=== PATIENT | female | born 1980 | race Caucasian/White ===

== ENCOUNTER 2021-11-30 11:27 | Outpatient (CLI) | payer BC, MEDICARE, SELFPAY ==
[2021-11-30 12:27] LABS: Anion Gap 10 mmol/L (8-16); Blood Urea Nitrogen 13 mg/dL (7-17); Carbon Dioxide 21 mmol/L (22-30); Chloride 104 mmol/L (98-107); Estimated Glomerular Filt Rate > 60; Glucose 91 mg/dL (65-110); Sodium 135 mmol/L (137-145)
== END 2021-11-30 11:28 | disposition home or self-care (01) ==
PROVIDERS: Anesthesiology; PCP Family Medicine; Visit Provider Urology
DX: Z01.818 Encounter for other preprocedural examination (principal); Z79.899 Other long term (current) drug therapy; N31.9 Neuromuscular dysfunction of bladder, unspecified
CPT/HCPCS: 36415; 80048; 87086

== ENCOUNTER 2021-12-04 00:15 | Day surgery (SDC) | payer BC, MEDICARE, SELFPAY ==
[2021-11-28 09:28] VITALS: BMI 29.4
--- NOTE | 2021-11-28 09:48 | PC.NURSE ---
Report to the Outpatient Waiting Room, entrance under the green pavilion located off [facility], at time 11:30 on date 12/04/21. OR Time: 1:30. - You and your visitor will be asked to self-screen and do not enter if you have any COVID symptoms. - Only one visitor and NO children visitors are allowed at this time. - The patient visitor is requested to leave or wait in car when not with patient due to restrictions. - A mask is required within the hospital. Patients may have clear liquids (water, carbonated beverages, clear teas, apple juice) until 3 hours prior to surgery with a maximum of 20 ounces. - No food from midnight until time of surgery Take the following medications with a SIP of water the morning of surgery: BUSPIRONE, DIAZEPAM, DULOXETINE, LYRICA Medications to discontinue per physician: VITAMINS/SUPPLEMENTS Date to take last dose: 11/30/[address] POTTS'S INSTRUCTIONS Please no make-up, nail wolof, hairspray, perfume, deodorant, or body powder the day of surgery. No jewelry (including any body piercings) or valuables the day of surgery, leave them at home. Please take a shower or bath the night before, or the morning of, surgery with an antibacterial soap. Wear comfortable, loose fitting clothing. - Jewelry must be removed prior to entering the operating room. Rings and piercings that are not removed may be cut off. - The hospital will not accept responsibility for valuables. - Please leave all valuables, including medications, at home the day of surgery. If you are going home after surgery, a licensed fire truck driver must drive you home. - NO public transportation without another adult. - We recommend that an adult stay with you for 24 hours following discharge. - We also recommend that you do not drive, make important decision, drink alcoholic beverages, or take any drugs that were not prescribed by your health care provider for at least 24 hours after your discharge time. Follow any additional instructions given to you from your surgeon. If you or anyone in your household have experienced Covid symptoms in the past week, please notify your surgeon or the nurse liaison at the phone number below for possible testing. Telephone instructions given to PT - ALICIA JASON and asked if any additional questions and then verbalized understanding. Patient advised to call surgeon office or pre surgery nurse liaison [phone] if any additional questions.
--- NOTE | 2021-12-01 08:59 | PM.IMHP ---
H&P: HPI History of Present Illness Date/Time: 12/01/21 08:59 Chief Complaint: Neurogenic bladder Narrative: 41-year-old with neurogenic bladder. She is catheterized by caregiver. She has history of autonomic dysreflexia. She has leakage between catheterizations. She presents for Botox 200 units Review of Systems Review of Systems: All systems reviewed & are unremarkable except as noted in HPI and below PMFSH Social History Social History Smoking status: Never smoker Alcohol intake: never Substance use: current Other substance usage details: CBD OIL DROPS Spiritual care concerns: No Meds Home Medications and Allergies Home Medications Medication Instructions Recorded Confirmed Type Lactobacillus acidophilus and 1 cap PO DAILY 11/28/21 11/28/21 History rhamnosus 15 billion cell capsule (Probiotic) apixaban 2.5 mg tablet (Eliquis) 2.5 mg PO BID 11/28/21 11/28/21 History apple cider vinegar 300 mg tablet 300 mg PO DAILY 11/28/21 11/28/21 History baclofen 10 mg tablet See Rx Instructions .Route .COMPLEX 11/28/21 11/28/21 History bisacodyl 5 mg tablet,delayed 5 mg PO HS 11/28/21 11/28/21 History release (Dulcolax (bisacodyl)) buspirone 7.5 mg tablet 7.5 mg PO BID 11/28/21 11/28/21 History calcium carbonate 500 mg-vitamin 1 tablet PO BID 11/28/21 11/28/21 History D3 5 mcg (200 unit) tablet cetirizine 10 mg tablet (Zyrtec) 10 mg PO DAILY 11/28/21 11/28/21 History diazepam 2 mg tablet 2 mg PO BID 11/28/21 11/28/21 History diphenhydramine HCl 25 mg capsule 25 mg PO HS 11/28/21 11/28/21 History (Benadryl) duloxetine 60 mg capsule,delayed 60 mg PO BID 11/28/21 11/28/21 History release furosemide 20 mg tablet 20 mg PO DAILY 11/28/21 11/28/21 History lorazepam 0.5 mg tablet 0.5 mg PO HS 11/28/21 11/28/21 History magnesium citrate 100 mg capsule 100 mg PO DAILY PRN Constipation 11/28/21 11/28/21 History melatonin 10 mg tablet 10 mg PO HS 11/28/21 11/28/21 History mirabegron 50 mg tablet,extended 50 mg PO HS 11/28/21 11/28/21 History release 24 hr (Myrbetriq) naproxen 500 mg tablet 500 mg PO BID PRN Pain 11/28/21 11/28/21 History norethindrone (contraceptive) 0.35 0.35 mg PO DAILY 11/28/21 11/28/21 History mg tablet nortriptyline 50 mg capsule 50 mg PO HS 11/28/21 11/28/21 History ondansetron 4 mg disintegrating 4 mg PO Q8H PRN Nausea 11/28/21 11/28/21 History tablet pregabalin 100 mg capsule (Lyrica) 100 mg PO TID 11/28/21 11/28/21 History spironolactone 50 mg tablet 50 mg PO TID 11/28/21 11/28/21 History Allergies Allergy/AdvReac Type Severity Reaction Status Date / Time No Known Allergies Allergy Verified 11/28/21 09:18 Exam Narrative: No acute distress Wheelchair-bound Assessment and Plan Assessment and plan (1) Uninhibited neurogenic bladder: Code(s): N31.9 - Neuromuscular dysfunction of bladder, unspecified Status: Acute Assessment and Plan: Cystoscopy with Botox 200 units. She artery does self catheterization
--- NOTE | 2021-12-04 07:15 | WPDHPUPDATE1 ---
History and Physical Update Update Date/Time: 12/04/21 07:15 History and Physical has been reviewed, including an updated exam of the patient. There are NO changes in the patient's condition. Risks, benefits, and alternatives have been discussed and questions answered. Patient agrees to proceed with procedure.
[2021-12-04] MEDS: LACTATED RINGERS 1,000 ML 30 ML IV CONT (12:07)
[2021-12-04 12:24] VITALS: BP 109/74; PULSE 71; RESP 18; TEMP 36.6; O2SAT 97
[2021-12-04 12:47] LABS: Beta HCG Quantitative < 2.39 mIU/ML
--- NOTE | 2021-12-04 12:58 | WPDANESEPPF ---
Anes - Initial Pre Proc Eval Procedure: Operation Date: 12/04/21 13:30 Proposed Procedures p Cystoscopy, Botox Injection 200 Units - Junito Montes MD Date/Time: 12/04/21 12:58 Surgeon: Junito Montes MD Pre Op Diagnosis: reflex neuropathic bladder Patient Data Age: 41 Gender: F Height: 1.65 m Weight: 85.5 kg Last Vital Signs Temp 36.6 C 12/04/21 12:24 Pulse 71 12/04/21 12:24 Resp 18 12/04/21 12:24 BP 109/74 12/04/21 12:24 Pulse Ox 97 12/04/21 12:24 O2 Del Method Room Air 12/04/21 12:24 Allergies Allergy/AdvReac Type Severity Reaction Status Date / Time No Known Allergies Allergy Verified 12/04/21 12:43 Home Medications Medication Instructions Recorded Confirmed Type Lactobacillus acidophilus and 1 cap PO DAILY 11/28/21 12/04/21 History rhamnosus 15 billion cell capsule (Probiotic) apixaban 2.5 mg tablet (Eliquis) 2.5 mg PO BID 11/28/21 12/04/21 History apple cider vinegar 300 mg tablet 300 mg PO DAILY 11/28/21 12/04/21 History baclofen 10 mg tablet See Rx Instructions .Route .COMPLEX 11/28/21 12/04/21 History bisacodyl 5 mg tablet,delayed 5 mg PO HS 11/28/21 12/04/21 History release (Dulcolax (bisacodyl)) buspirone 7.5 mg tablet 7.5 mg PO BID 11/28/21 12/04/21 History calcium carbonate 500 mg-vitamin 1 tablet PO BID 11/28/21 12/04/21 History D3 5 mcg (200 unit) tablet cetirizine 10 mg tablet (Zyrtec) 10 mg PO DAILY 11/28/21 12/04/21 History diazepam 2 mg tablet 2 mg PO BID 11/28/21 12/04/21 History diphenhydramine HCl 25 mg capsule 25 mg PO HS 11/28/21 12/04/21 History (Benadryl) duloxetine 60 mg capsule,delayed 60 mg PO BID 11/28/21 12/04/21 History release furosemide 20 mg tablet 20 mg PO DAILY 11/28/21 12/04/21 History lorazepam 0.5 mg tablet 0.5 mg PO HS 11/28/21 12/04/21 History magnesium citrate 100 mg capsule 100 mg PO DAILY PRN Constipation 11/28/21 12/04/21 History melatonin 10 mg tablet 10 mg PO HS 11/28/21 12/04/21 History mirabegron 50 mg tablet,extended 50 mg PO HS 11/28/21 12/04/21 History release 24 hr (Myrbetriq) naproxen 500 mg tablet 500 mg PO BID PRN Pain 11/28/21 12/04/21 History norethindrone (contraceptive) 0.35 0.35 mg PO DAILY 11/28/21 12/04/21 History mg tablet nortriptyline 50 mg capsule 50 mg PO HS 11/28/21 12/04/21 History ondansetron 4 mg disintegrating 4 mg PO Q8H PRN Nausea 11/28/21 12/04/21 History tablet pregabalin 100 mg capsule (Lyrica) 100 mg PO TID 11/28/21 12/04/21 History spironolactone 50 mg tablet 50 mg PO TID 11/28/21 12/04/21 History Laboratory Tests 12/04/21 12:00 Beta HCG, Quant < 2.39 mIU/ML mIU/ML Patient hx anesthesia problems: none Family hx anesthesia problems: none Results Review: All pre-operative results and documents have been reviewed as part of the pre-operative evaluation. [facility] Past Medical History Medical History Anxiety Quadriplegia Social History Social History Smoking status: Never smoker Alcohol intake: never Substance use: current Other substance usage details: CBD OIL DROPS Living arrangements: with family Spiritual care concerns: No Anes - Eval Final PreProcedure Day of Procedure 12/04/21 12:58 Patient weight: obese Heart: regular rate and rhythm Lungs: decreased breath sounds Airway: Mallampati scale class II Neurological: alert and oriented and other (quad) Last oral intake: >/= 8 hours ASA classification: III Emergent: no Anesthetic plan: proceed Anesthesia type and monitoring: general GIVS and standard monitoring Results Review: All pre-operative results and documents have been reviewed as part of the pre-operative evaluation. Informed Consent: The patient's anesthetic plan and its attendant risks and benefits were discussed with the patient/family/POA. Questions were solicited and answers provided to
[2021-12-04] MEDS: ceFAZolin 2 GM/D5W 50 ML 2 GM/50 ML BAG IVPB (13:04)
[2021-12-04] MEDS: BOTULINUM TOXIN TYPE A (*SPLP) 100 UNITS VIAL 200 UNITS XX (13:18)
[2021-12-04 13:30] VITALS: BP 95/61; PULSE 83; RESP 16; O2SAT 96
--- NOTE | 2021-12-04 13:32 | P.OP_ITS ---
Procedure Note - Detailed Date of Procedure 12/04/21 Pre-op Diagnosis reflex neuropathic bladder Post-op Diagnosis Same Procedure Performed Cystoscopy the injection of Botox 200 units Surgeon Junito Montes MD [employer] None Anesthesia MAC Indications This is a young woman neurogenic bladder. She does intermittent catheterization. She has leakage doing catheterizations. She is here for cystoscopy with injection of Botox 200 units. She understands risks of bleeding, infection, lack of efficacy, need for repeat procedures. She agrees to proceed Findings Trabeculated bladder Description of Procedure She has correctly identified. Informed consent obtained. She from the operating room. She was given MAC anesthesia. She was monitored for autonomic dysreflexia. She was given appropriate perioperative antibiotics. A time-out performed. Cystoscopy revealed moderate trabeculations. Bladder otherwise normal without tumors or abnormalities. Ureteral orifices normal. I mixed 200 units of Botox in 20 cc preservative-free saline. I injected throughout the bladder in the sub urothelial and muscular layer. Additional cc was used to clear the needle. There is no significant bleeding from the injection sites. Her bladder was drained. She was awakened transferred to PACU in stable condition. Estimated Blood Loss 1 Drains No Packing No Pathology None sent Complications No immediate complications Condition Stable Disposition PACU
[2021-12-04 14:00] VITALS: BP 102/66; PULSE 67; RESP 16; O2SAT 98
[2021-12-04 14:27] VITALS: BP 86/47; PULSE 70; RESP 16; O2SAT 98
== END 2021-12-04 14:50 | disposition home or self-care (01) ==
PROVIDERS: PCP Family Medicine; Visit Provider Urology
PROC: 3E0K8GC Introduction of Other Therapeutic Substance into Genitourinary Tract, Via Natural or Artificial Opening Endoscopic (ICD-10-PCS; CPT 52287; principal; 2021-12-04 13:30)
DX: N31.9 Neuromuscular dysfunction of bladder, unspecified (principal); Z79.01 Long term (current) use of anticoagulants; F41.9 Anxiety disorder, unspecified; G82.50 Quadriplegia, unspecified; E66.9 Obesity, unspecified; Z68.31 Body mass index [BMI] 31.0-31.9, adult
CPT/HCPCS: 52287; 36415; 84702; A9270; J0585; J0690; J2250; J2704; J3010; J7120

== ENCOUNTER 2022-06-11 12:59 | Outpatient (CLI) | payer MEDICARE, SELFPAY ==
[2022-06-11 14:57] LABS: Anion Gap 9 mmol/L (8-16); Blood Urea Nitrogen 11 mg/dL (7-17); Calcium 8.5 mg/dL (8.4-10.2); Carbon Dioxide 22 mmol/L (22-30); Chloride 106 mmol/L (98-107); Estimated Glomerular Filt Rate > 60; Glucose 99 mg/dL (65-110); Sodium 137 mmol/L (137-145)
== END 2022-06-11 13:00 | disposition home or self-care (01) ==
LOC: ANHSURGERY 13:04
PROVIDERS: Anesthesiology; PCP Family Medicine; Visit Provider Urology
DX: N31.9 Neuromuscular dysfunction of bladder, unspecified (principal); Z79.899 Other long term (current) drug therapy
CPT/HCPCS: 36415; 80048; 87077; 87086; 87186

== ENCOUNTER 2022-06-15 00:29 | Day surgery (SDC) | payer MEDICARE, SELFPAY ==
[2022-06-05 11:46] VITALS: BMI 25.4
--- NOTE | 2022-06-05 11:51 | PC.NURSE ---
Report to the Outpatient Waiting Room, entrance under the green pavilion located off [facility], at time 7:00 on date 06/15/22. Planned Procedure Time: 9:00. Time changes happen often and if your time is changed the preop area will call you the afternoon before. - You and your visitor will be asked to self-screen and do not enter if you have any COVID symptoms. - Only one visitor is requested with a max of two and NO children visitors are allowed at this time. - The patient visitor may be requested to leave or wait in car when not with patient due to distancing restrictions. - A mask is optional within the hospital at this time. Patients may have clear liquids (water, carbonated beverages, clear teas, apple juice) until 3 hours prior to surgery with a maximum of 20 ounces. - No food from midnight until time of surgery Take the following medications with a SIP of water the morning of surgery: BACLOFEN, BUSPIRONE, DIAZEPAM, DULOXETINE, LYRICA DO NOT STOP ANY OF YOUR OTHER PRESCRIPTION MEDICATIONS PRIOR TO SURGERY?EXCEPT THE FOLLOWING Medications to discontinue per physician: VITAMINS/SUPPLEMENTS Date to take last dose: 05/14/[address] POTTS'S INSTRUCTIONS Please no make-up, nail spanish, hairspray, perfume, deodorant, or body powder the day of surgery. No jewelry (including any body piercings) or valuables the day of surgery, leave them at home. Please take a shower or bath the night before, or the morning of, surgery with an antibacterial soap. Wear comfortable, loose fitting clothing. - Jewelry must be removed prior to entering the operating room. Rings and piercings that are not removed may be cut off. - The hospital will not accept responsibility for valuables. - Please leave all valuables, including medications, at home the day of surgery. If you are going home after surgery, a licensed solo truck driver must drive you home. - NO public transportation without another adult if you receive anesthesia. - We recommend that an adult stay with you for 24 hours following discharge. - We also recommend that you do not drive, make important decision, drink alcoholic beverages, or take any drugs that were not prescribed by your health care provider for at least 24 hours after your discharge time. Follow any additional instructions given to you from your surgeon. If you or anyone in your household have experienced Covid symptoms in the past week, please notify your surgeon or the nurse liaison at the phone number below for possible testing. Telephone instructions given to JYOTI JASON and asked if any additional questions and then verbalized understanding. Patient advised to call surgeon office or pre surgery nurse liaison [phone] if any additional questions.
--- NOTE | 2022-06-11 12:41 | PM.IMHP ---
H&P: HPI History of Present Illness Date/Time: 06/11/22 12:41 Chief Complaint: Neurogenic bladder Narrative: Botox injection. Done in the operating room due to mobility issues and autonomic dysreflexia Review of Systems Review of Systems: All systems reviewed & are unremarkable except as noted in HPI and below PMFSH Past Medical History Medical History Anxiety Quadriplegia Social History Social History Smoking status: Never smoker Alcohol intake: former Substance use: current Substance use type: marijuana Other substance usage details: CBD OIL DROPS Living arrangements: with friend(s) Additional living arrangements comments: BOYFRIEND Spiritual care concerns: No Meds Home Medications and Allergies Home Medications Medication Instructions Recorded Confirmed Type Lactobacillus acidophilus and 1 cap PO DAILY 11/28/21 06/05/22 History rhamnosus 15 billion cell capsule (Probiotic) apixaban 2.5 mg tablet (Eliquis) 2.5 mg PO BID 11/28/21 06/05/22 History apple cider vinegar 300 mg tablet 300 mg PO DAILY 11/28/21 06/05/22 History baclofen 10 mg tablet See Rx Instructions .Route .COMPLEX 11/28/21 06/05/22 History bisacodyl 5 mg tablet,delayed 5 mg PO HS 11/28/21 06/05/22 History release (Dulcolax (bisacodyl)) buspirone 7.5 mg tablet 7.5 mg PO BID 11/28/21 06/05/22 History calcium carbonate 500 mg-vitamin 1 tablet PO BID 11/28/21 06/05/22 History D3 5 mcg (200 unit) tablet cetirizine 10 mg tablet (Zyrtec) 10 mg PO DAILY 11/28/21 06/05/22 History diazepam 2 mg tablet 2 mg PO BID 11/28/21 06/05/22 History diphenhydramine HCl 25 mg capsule 25 mg PO HS 11/28/21 06/05/22 History (Benadryl) duloxetine 60 mg capsule,delayed 60 mg PO BID 11/28/21 06/05/22 History release furosemide 20 mg tablet 20 mg PO DAILY 11/28/21 06/05/22 History lorazepam 0.5 mg tablet 0.5 mg PO HS 11/28/21 06/05/22 History melatonin 10 mg tablet 10 mg PO HS 11/28/21 06/05/22 History mirabegron 50 mg tablet,extended 50 mg PO HS 11/28/21 06/05/22 History release 24 hr (Myrbetriq) naproxen 500 mg tablet 500 mg PO BID PRN Pain 11/28/21 06/05/22 History norethindrone (contraceptive) 0.35 0.35 mg PO DAILY 11/28/21 06/05/22 History mg tablet nortriptyline 50 mg capsule 50 mg PO HS 11/28/21 06/05/22 History ondansetron 4 mg disintegrating 4 mg PO Q8H PRN Nausea 11/28/21 06/05/22 History tablet pregabalin 100 mg capsule (Lyrica) 100 mg PO TID 11/28/21 06/05/22 History spironolactone 50 mg tablet 50 mg PO TID 11/28/21 06/05/22 History Allergies Allergy/AdvReac Type Severity Reaction Status Date / Time adhesive tape AdvReac Blister Verified 06/05/22 11:43 Exam Narrative: She is wheelchair-bound No acute distress Assessment and Plan Assessment and plan (1) Uninhibited neurogenic bladder: Code(s): N31.9 - Neuromuscular dysfunction of bladder, unspecified Status: Acute Assessment and Plan: Botox 200 units. She already does intermittent catheterization
--- NOTE | 2022-06-15 07:13 | WPDHPUPDATE1 ---
History and Physical Update Update Date/Time: 06/15/22 07:13 History and Physical has been reviewed, including an updated exam of the patient. There are NO changes in the patient's condition. Risks, benefits, and alternatives have been discussed and questions answered. Patient agrees to proceed with procedure.
[2022-06-15 08:09] VITALS: BP 114/82; PULSE 85; RESP 14; TEMP 36.2; O2SAT 100
--- NOTE | 2022-06-15 08:18 | WPDANESEPPF ---
Anes - Initial Pre Proc Eval Procedure: Operation Date: 06/15/22 09:00 Proposed Procedures p Cystoscopy, Botox Injection - Junito Montes MD Date/Time: 06/15/22 08:18 Surgeon: Junito Montes MD Pre Op Diagnosis: neuropathic bladder Patient Data Age: 42 Gender: F Height: 1.65 m Weight: 83.1 kg Last Vital Signs Temp 97.2 F L 06/15/22 08:09 Pulse 85 06/15/22 08:09 Resp 14 06/15/22 08:09 BP 114/82 06/15/22 08:09 Pulse Ox 100 06/15/22 08:09 O2 Del Method Room Air 06/15/22 08:09 Allergies Allergy/AdvReac Type Severity Reaction Status Date / Time adhesive tape AdvReac Blister Verified 06/05/22 11:43 Home Medications Medication Instructions Recorded Confirmed Type Lactobacillus acidophilus and 1 cap PO DAILY 11/28/21 06/05/22 History rhamnosus 15 billion cell capsule (Probiotic) apixaban 2.5 mg tablet (Eliquis) 2.5 mg PO BID 11/28/21 06/05/22 History apple cider vinegar 300 mg tablet 300 mg PO DAILY 11/28/21 06/05/22 History baclofen 10 mg tablet See Rx Instructions .Route .COMPLEX 11/28/21 06/05/22 History bisacodyl 5 mg tablet,delayed 5 mg PO HS 11/28/21 06/05/22 History release (Dulcolax (bisacodyl)) buspirone 7.5 mg tablet 7.5 mg PO BID 11/28/21 06/05/22 History calcium carbonate 500 mg-vitamin 1 tablet PO BID 11/28/21 06/05/22 History D3 5 mcg (200 unit) tablet cetirizine 10 mg tablet (Zyrtec) 10 mg PO DAILY 11/28/21 06/05/22 History diazepam 2 mg tablet 2 mg PO BID 11/28/21 06/05/22 History diphenhydramine HCl 25 mg capsule 25 mg PO HS 11/28/21 06/05/22 History (Benadryl) duloxetine 60 mg capsule,delayed 60 mg PO BID 11/28/21 06/05/22 History release furosemide 20 mg tablet 20 mg PO DAILY 11/28/21 06/05/22 History lorazepam 0.5 mg tablet 0.5 mg PO HS 11/28/21 06/05/22 History melatonin 10 mg tablet 10 mg PO HS 11/28/21 06/05/22 History mirabegron 50 mg tablet,extended 50 mg PO HS 11/28/21 06/05/22 History release 24 hr (Myrbetriq) naproxen 500 mg tablet 500 mg PO BID PRN Pain 11/28/21 06/05/22 History norethindrone (contraceptive) 0.35 0.35 mg PO DAILY 11/28/21 06/05/22 History mg tablet nortriptyline 50 mg capsule 50 mg PO HS 11/28/21 06/05/22 History ondansetron 4 mg disintegrating 4 mg PO Q8H PRN Nausea 11/28/21 06/05/22 History tablet pregabalin 100 mg capsule (Lyrica) 100 mg PO TID 11/28/21 06/05/22 History spironolactone 50 mg tablet 50 mg PO TID 11/28/21 06/05/22 History Patient hx anesthesia problems: none Family hx anesthesia problems: none Results Review: All pre-operative results and documents have been reviewed as part of the pre-operative evaluation. [facility] Past Medical History Medical History Anxiety Quadriplegia Social History Social History Smoking status: Never smoker Alcohol intake: former Substance use: current Substance use type: marijuana Other substance usage details: CBD OIL DROPS Living arrangements: with friend(s) Additional living arrangements comments: BOYFRIEND Spiritual care concerns: No Anes - Eval Final PreProcedure Day of Procedure 06/15/22 08:18 Patient weight: obese Heart: regular rate and rhythm Lungs: clear to auscultation Neurological: alert and oriented Last oral intake: >/= 8 hours ASA classification: III Emergent: no Anesthetic plan: proceed Anesthesia type and monitoring: general GIVS and standard monitoring Results Review: All pre-operative results and documents have been reviewed as part of the pre-operative evaluation. Informed Consent: The patient's anesthetic plan and its attendant risks and benefits were discussed with the patient/family/POA. Questions were solicited and answers provided to the satisfaction of the patient/family/POA.
[2022-06-15] MEDS: LACTATED RINGERS 1,000 ML 30 ML IV CONT (09:01)
[2022-06-15] MEDS: ceFAZolin 2 GM/D5W 50 ML 2 GM/50 ML BAG IVPB (09:05)
[2022-06-15] MEDS: BOTULINUM TOXIN TYPE A (*SPLP) 100 UNITS VIAL 200 UNITS XX (09:18)
[2022-06-15] MEDS: LIDOCAINE HCL 2% GEL UROJET 10 ML PKG MUCOUS MEM (09:19)
[2022-06-15 09:28] VITALS: BP 132/89; PULSE 91; RESP 16; O2SAT 95
--- NOTE | 2022-06-15 09:31 | W.PM.PROC2 ---
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 She does intermittent catheterization. She is here today for repeat Botox injection. we do this in the operating room due to her autonomic dysreflexia Findings mild trabeculation Description of Procedure she was correctly identified. Informed consent obtained. She from the operating room. She was given MAC anesthesia. She was placed in dorsal lithotomy position. She was prepped draped sterile fashion. Time-out performed. Cystoscopy revealed a mildly trabeculated bladder. I mixed 2 units Botox in 20 cc preservative-free saline. I injected throughout the bladder in the sub urothelial and muscular layer. Additional cc was used to clear the needle. Her bladder was drained. There was minimal bleeding from the injection sites. Uro jet was applied. She was awakened transferred to PACU in stable condition Estimated Blood Loss 1 Complications No immediate complications Condition Stable Disposition PACU
[2022-06-15 09:55] VITALS: BP 121/98; PULSE 85; RESP 16
== END 2022-06-15 10:28 | disposition home or self-care (01) ==
PROVIDERS: PCP Family Medicine; Visit Provider Urology
PROC: 3E0K8GC Introduction of Other Therapeutic Substance into Genitourinary Tract, Via Natural or Artificial Opening Endoscopic (ICD-10-PCS; CPT 52287; principal; 2022-06-15 09:00)
DX: N31.9 Neuromuscular dysfunction of bladder, unspecified (principal); N32.89 Other specified disorders of bladder; G82.50 Quadriplegia, unspecified
CPT/HCPCS: 52287; J0585; J0690; J2250; J2704; J3010; J7120

== ENCOUNTER 2023-06-14 00:21 | Day surgery (SDC) | payer MEDICARE, SELFPAY ==
--- NOTE | 2023-06-09 17:21 | P.HP_ITS ---
H&P: HPI History of Present Illness Date/Time: 06/09/23 17:21 Chief Complaint: neurogenic bladder Narrative: cystoscopy with Botox 200 units Review of Systems Review of Systems: All systems reviewed & are unremarkable except as noted in HPI and below [facility] Past Medical History Medical History Anxiety Quadriplegia Social History Social History Smoking status: Never smoker Alcohol intake: former Substance use: current Substance use type: marijuana Other substance usage details: CBD OIL DROPS Living arrangements: with friend(s) Additional living arrangements comments: BOYFRIEND Spiritual care concerns: No Meds Home Medications and Allergies Home Medications Medication Instructions Recorded Confirmed Type Lactobacillus acidophilus and 1 cap PO DAILY 11/28/21 06/05/22 History rhamnosus 15 billion cell capsule (Probiotic) apixaban 2.5 mg tablet (Eliquis) 2.5 mg PO BID 11/28/21 06/05/22 History apple cider vinegar 300 mg tablet 300 mg PO DAILY 11/28/21 06/05/22 History baclofen 10 mg tablet See Rx Instructions .Route .COMPLEX 11/28/21 06/15/22 History bisacodyl 5 mg tablet,delayed 5 mg PO HS 11/28/21 06/05/22 History release (Dulcolax (bisacodyl)) buspirone 7.5 mg tablet 7.5 mg PO BID 11/28/21 06/15/22 History calcium carbonate 500 mg-vitamin 1 tablet PO BID 11/28/21 06/05/22 History D3 5 mcg (200 unit) tablet cetirizine 10 mg tablet (Zyrtec) 10 mg PO DAILY 11/28/21 06/05/22 History diazepam 2 mg tablet 2 mg PO BID 11/28/21 06/15/22 History diphenhydramine HCl 25 mg capsule 25 mg PO HS 11/28/21 06/05/22 History (Benadryl) duloxetine 60 mg capsule,delayed 60 mg PO BID 11/28/21 06/15/22 History release furosemide 20 mg tablet 20 mg PO DAILY 11/28/21 06/05/22 History lorazepam 0.5 mg tablet 0.5 mg PO HS 11/28/21 06/15/22 History melatonin 10 mg tablet 10 mg PO HS 11/28/21 06/05/22 History mirabegron 50 mg tablet,extended 50 mg PO HS 11/28/21 06/05/22 History release 24 hr (Myrbetriq) naproxen 500 mg tablet 500 mg PO BID PRN Pain 11/28/21 06/05/22 History norethindrone (contraceptive) 0.35 0.35 mg PO DAILY 11/28/21 06/05/22 History mg tablet nortriptyline 50 mg capsule 50 mg PO HS 11/28/21 06/05/22 History ondansetron 4 mg disintegrating 4 mg PO Q8H PRN Nausea 11/28/21 06/05/22 History tablet pregabalin 100 mg capsule (Lyrica) 100 mg PO TID 11/28/21 06/05/22 History spironolactone 50 mg tablet 50 mg PO TID 11/28/21 06/05/22 History Allergies Allergy/AdvReac Type Severity Reaction Status Date / Time adhesive tape AdvReac Blister Verified 06/15/22 08:58 Exam Narrative: wheelchair-bound no acute distress Assessment and Plan Assessment and plan (1) Uninhibited neurogenic bladder: Code(s): N31.9 - Neuromuscular dysfunction of bladder, unspecified Status: Acute Assessment and Plan: cystoscopy with Botox 200 units
[2023-06-10 14:24] VITALS: BMI 30.2
--- NOTE | 2023-06-10 14:31 | PC.NURSE ---
Report to the Outpatient Waiting Room, entrance under the green pavilion located off [facility], at time 0715 on date 06/14/23. Planned Procedure Time: 0915. Time changes happen often and if your time is changed the preop area will call you the afternoon before. - You and your visitor will be asked to self-screen and do not enter if you have any COVID symptoms. - A mask is optional within the hospital at this time. Patients may have clear liquids (water, carbonated beverages, clear teas, apple juice) until 3 hours prior to surgery with a maximum of 20 ounces. - No food from midnight until time of surgery Take the following medications with a SIP of water the morning of surgery: AMOXICILLIN, BACLOFEN, BUSPIRONE, DIAZEPAM, DULOXETINE, CONTRACEPTIVE, LYRICA DO NOT STOP ANY OF YOUR OTHER PRESCRIPTION MEDICATIONS PRIOR TO SURGERY ?EXCEPT THE FOLLOWING Medications to discontinue per physician: VITAMINS/SUPPLEMENTS Date to take last dose: 06/10/[address] POTTS REGARDING NAPROXEN AND ELIQUIS Please no make-up, nail mauritanian, hairspray, perfume, deodorant, or body powder the day of surgery. No jewelry (including any body piercings) or valuables the day of surgery, leave them at home. Please take a shower or bath the night before, or the morning of, surgery with an antibacterial soap. Wear comfortable, loose fitting clothing. - Jewelry must be removed prior to entering the operating room. Rings and piercings that are not removed may be cut off. - The hospital will not accept responsibility for valuables. - Please leave all valuables, including medications, at home the day of surgery. If you are going home after surgery, a licensed steam train driver must drive you home. - NO public transportation without another adult if you receive anesthesia. - We recommend that an adult stay with you for 24 hours following discharge. - We also recommend that you do not drive, make important decision, drink alcoholic beverages, or take any drugs that were not prescribed by your health care provider for at least 24 hours after your discharge time. Follow any additional instructions given to you from your surgeon. If you or anyone in your household have experienced Covid symptoms in the past week, please notify your surgeon or the nurse liaison at the phone number below for possible testing. Telephone instructions given to PT - ALICIA JASON and asked if any additional questions and then verbalized understanding. Patient advised to call surgeon office or pre surgery nurse liaison [phone] if any additional questions.
--- NOTE | 2023-06-13 13:13 | WPDANESEPPF ---
Anes - Initial Pre Proc Eval Procedure: Operation Date: 06/14/23 09:15 Proposed Procedures p Cystoscopy, Botox Injection - Junito Montes MD Date/Time: 06/13/23 13:13 Surgeon: Junito Montes MD Pre Op Diagnosis: neuropathic bladder Patient Data Age: 43 Gender: F Height: 1.65 m Weight: 82.55 kg Allergies Allergy/AdvReac Type Severity Reaction Status Date / Time adhesive tape AdvReac Blister Verified 06/10/23 14:20 Home Medications Medication Instructions Recorded Confirmed Type Lactobacillus acidophilus and 1 cap PO DAILY 11/28/21 06/10/23 History rhamnosus 15 billion cell capsule (Probiotic) apixaban 2.5 mg tablet (Eliquis) 2.5 mg PO BID 11/28/21 06/10/23 History apple cider vinegar 300 mg tablet 300 mg PO DAILY 11/28/21 06/10/23 History baclofen 10 mg tablet See Rx Instructions .Route .COMPLEX 11/28/21 06/10/23 History bisacodyl 5 mg tablet,delayed 5 mg PO HS 11/28/21 06/10/23 History release (Dulcolax (bisacodyl)) buspirone 7.5 mg tablet 7.5 mg PO BID 11/28/21 06/10/23 History calcium carbonate 500 mg-vitamin 1 tablet PO BID 11/28/21 06/10/23 History D3 5 mcg (200 unit) tablet cetirizine 10 mg tablet (Zyrtec) 10 mg PO DAILY 11/28/21 06/10/23 History diazepam 2 mg tablet 2 mg PO BID 11/28/21 06/10/23 History diphenhydramine HCl 25 mg capsule 25 mg PO HS 11/28/21 06/10/23 History (Benadryl) duloxetine 60 mg capsule,delayed 60 mg PO BID 11/28/21 06/10/23 History release furosemide 20 mg tablet 20 mg PO DAILY 11/28/21 06/10/23 History melatonin 10 mg tablet 10 mg PO HS 11/28/21 06/10/23 History naproxen 500 mg tablet 500 mg PO BID PRN Pain 11/28/21 06/10/23 History norethindrone (contraceptive) 0.35 0.35 mg PO DAILY 11/28/21 06/10/23 History mg tablet nortriptyline 50 mg capsule 50 mg PO HS 11/28/21 06/10/23 History ondansetron 4 mg disintegrating 4 mg PO Q8H PRN Nausea 11/28/21 06/10/23 History tablet pregabalin 100 mg capsule (Lyrica) 100 mg PO TID 11/28/21 06/10/23 History spironolactone 50 mg tablet 50 mg PO TID 11/28/21 06/10/23 History amoxicillin 500 mg capsule 500 mg PO BID 06/10/23 06/10/23 History ascorbic acid 30 mg-collagen, 1 tablet PO DAILY 06/10/23 06/10/23 History hydrolyzed 833.3 mg tablet (Collagen Skin Renewal) oxybutynin chloride 5 mg tablet 5 mg PO HS 06/10/23 06/10/23 History Patient hx anesthesia problems: none Family hx anesthesia problems: none Results Review: All pre-operative results and documents have been reviewed as part of the pre-operative evaluation. [facility] Past Medical History Medical History Anxiety Quadriplegia Social History Social History Smoking status: Never smoker Alcohol intake: former Substance use: current Substance use type: marijuana Other substance usage details: CBD OIL DROPS Living arrangements: with friend(s) Additional living arrangements comments: BOYFRIEND Spiritual care concerns: No Anes - Eval Final PreProcedure Day of Procedure 06/13/23 13:13 Patient weight: obese Heart: regular rate and rhythm Lungs: clear to auscultation Airway: Mallampati scale class II Neurological: alert and oriented Last oral intake: >/= 8 hours ASA classification: III Emergent: no Anesthetic plan: proceed Anesthesia type and monitoring: general GIVS and standard monitoring Results Review: All pre-operative results and documents have been reviewed as part of the pre-operative evaluation. Informed Consent: The patient's anesthetic plan and its attendant risks and benefits were discussed with the patient/family/POA. Questions were solicited and answers provided to the satisfaction of the patient/family/POA.
--- NOTE | 2023-06-14 04:36 | WPDHPUPDATE1 ---
History and Physical Update Update Date/Time: 06/14/23 04:36 History and Physical has been reviewed, including an updated exam of the patient. There are NO changes in the patient's condition. Risks, benefits, and alternatives have been discussed and questions answered. Patient agrees to proceed with procedure.
[2023-06-14 07:30] VITALS: BP 114/68; PULSE 96; RESP 16; TEMP 36.1; O2SAT 99
[2023-06-14] MEDS: LACTATED RINGERS 1,000 ML 30 ML IV CONT (07:45)
[2023-06-14] MEDS: ceFAZolin 2 GM/D5W 50 ML 2 GM/50 ML BAG IVPB (09:18)
[2023-06-14] MEDS: BOTULINUM TOXIN TYPE A (*SPLP) 100 UNITS VIAL 200 UNITS XX (09:19)
--- NOTE | 2023-06-14 09:23 | W.PM.PROC2 ---
Procedure Note - Detailed Date of Procedure 06/14/23 Pre-op Diagnosis neuropathic bladder Post-op Diagnosis Same Procedure Performed cystoscopy with injection of botulinum toxin a 200 units Surgeon Junito Montes MD Anesthesia MAC Indications this is a patient with urinary incontinence. They are here today for a Botox injection She has got a neurogenic bladder due to spinal cord injury Description of Procedure She was correctly identified. Informed consent obtained. There brought to the operating room. There given mac anesthesia. There prepped and draped in sterile fashion. There given appropriate perioperative antibiotics. Time-out performed. Examination of the bladder revealed moderate trabeculations. Ureteral orifices were normal. There was no other bladder abnormalities. I mixed 200 units of Botox with 20 mL of saline. It was injected throughout the bladder in the sub urothelial the muscular layer. Additional cc was used to clear the needle. the bladder was drained. There is minimal bleeding under low insufflation pressures. There awakened and transferred to PACU in stable condition. Implants None Estimated Blood Loss 1 Drains No Packing No Pathology None sent Complications No immediate complications Condition Stable Disposition PACU
[2023-06-14 09:27] LABS: Anion Gap 5 mmol/L (8-16); Blood Urea Nitrogen 8 mg/dL (7-17); Carbon Dioxide 22 mmol/L (22-30); Chloride 109 mmol/L (98-107); Estimated CRCL calculation 111 ml/min; Estimated Glomerular Filt Rate > 60; Glucose 100 mg/dL (65-110); Potassium 4.2 mmol/L (3.4-5.0); Sodium 136 mmol/L (137-145)
[2023-06-14 09:30] VITALS: BP 87/55; PULSE 77; RESP 14; O2SAT 92
[2023-06-14 10:00] VITALS: BP 93/73; PULSE 77; RESP 16; O2SAT 99
[2023-06-14 10:30] VITALS: BP 103/75; PULSE 71; RESP 16; O2SAT 99
--- NOTE | 2023-06-14 10:57 | SUR.PHASEII ---
1015 PATIENT DRESSED AND TRANSFERRED TO OWN ELECTRIC WHEELCHAIR USING SHUBHAM AND 3 STAFF. TOLERATED WELL.
== END 2023-06-14 10:35 | disposition home or self-care (01) ==
PROVIDERS: Anesthesiology; PCP Family Medicine; Visit Provider Urology
PROC: 3E0K8GC Introduction of Other Therapeutic Substance into Genitourinary Tract, Via Natural or Artificial Opening Endoscopic (ICD-10-PCS; CPT 52287; principal; 2023-06-14 09:15)
DX: N31.9 Neuromuscular dysfunction of bladder, unspecified (principal); F41.9 Anxiety disorder, unspecified; G82.50 Quadriplegia, unspecified; F12.90 Cannabis use, unspecified, uncomplicated; E66.9 Obesity, unspecified; Z68.31 Body mass index [BMI] 31.0-31.9, adult
CPT/HCPCS: 52287; 36415; 80048; J0585; J0690; J1100; J2250; J2405; J2704; J3010; J7120

== ENCOUNTER 2023-12-13 00:22 | Day surgery (SDC) | payer MEDICARE, SELFPAY ==
[2023-12-10 11:06] VITALS: BMI 29.9
--- NOTE | 2023-12-10 11:12 | PC.NURSE ---
Report to the Outpatient Waiting Room, entrance under the green pavilion located off [facility], at time _0700_ on date _[id number]_. Planned Procedure Time: _0900_.? Time changes happen often and if your time is changed the preop area will call you the afternoon before. - You and your visitor will be asked to self-screen and do not enter if you have any COVID symptoms. Please call surgeon if you need to reschedule. - A mask is optional within the hospital at this time. Patients may have clear liquids (water, carbonated beverages, clear teas, apple juice) until 3 hours prior to surgery with a maximum of 20 ounces. - No food from midnight until time of surgery and no smoking Take only the following medications with a SIP of water on the morning of surgery: ___Amoxicillin, Baclofen, Buspirone, Diazepam, Duloxetine, Norethindrone and Lyrica____ DO NOT STOP ANY OF YOUR OTHER PRESCRIPTION MEDICATIONS PRIOR TO SURGERY EXCEPT THE FOLLOWING Medications to discontinue per physician Vitamins and supplements Date to take last dose__Stop today. Patient says she stops eliquis 2 days before surgery. Please no make-up, nail cymro, hairspray, perfume, deodorant, or body powder the day of surgery.? No jewelry (including any body piercings) or valuables the day of surgery, leave them at home.? Please take a shower or bath the night before, or the morning of, surgery with an antibacterial soap.? Wear comfortable, loose fitting clothing.? - Jewelry must be removed prior to entering the operating room.? Rings and piercings that are not removed may be cut off. - The hospital will not accept responsibility for valuables.? - Please leave all valuables, including medications, at home the day of surgery. If you are going home after surgery, a licensed driver license examiner must drive you home.? - NO public transportation without another adult if you receive anesthesia. - We recommend that an adult stay with you for 24 hours following discharge. - We also recommend that you do not drive, make important decision, drink alcoholic beverages, or take any drugs that were not prescribed by your health care provider for at least 24 hours after your discharge time. Follow any additional instructions given to you from your surgeon. Telephone instructions given to __Katarabella___and asked if any additional questions and then verbalized understanding. Patient advised to call surgeon office or pre surgery nurse liaison [phone] if any additional questions.
--- NOTE | 2023-12-11 22:02 | P.HP_ITS ---
H&P: HPI History of Present Illness Date/Time: 12/11/23 22:02 Chief Complaint: neurogenic bladder Narrative: neurogenic bladder treated with Botox 200 units Review of Systems Review of Systems: All systems reviewed & are unremarkable except as noted in HPI and below [facility] Past Medical History Medical History Anxiety Quadriplegia Social History Social History Smoking status: Never smoker Alcohol intake: former Substance use: current Substance use type: marijuana Other substance usage details: CBD OIL DROPS Living arrangements: with family Additional living arrangements comments: BOYFRIEND Spiritual care concerns: No Meds Home Medications and Allergies Home Medications Medication Instructions Recorded Confirmed Type Lactobacillus acidophilus and 1 cap PO DAILY 11/28/21 12/10/23 History rhamnosus 15 billion cell capsule (Probiotic) apixaban 2.5 mg tablet (Eliquis) 2.5 mg PO BID 11/28/21 12/10/23 History apple cider vinegar 300 mg tablet 300 mg PO DAILY 11/28/21 12/10/23 History baclofen 10 mg tablet See Rx Instructions .Route .COMPLEX 11/28/21 12/10/23 History bisacodyl 5 mg tablet,delayed 5 mg PO HS 11/28/21 12/10/23 History release (Dulcolax (bisacodyl)) buspirone 7.5 mg tablet 7.5 mg PO BID 11/28/21 12/10/23 History calcium carbonate 500 mg-vitamin 1 tablet PO BID 11/28/21 12/10/23 History D3 5 mcg (200 unit) tablet cetirizine 10 mg tablet (Zyrtec) 10 mg PO DAILY 11/28/21 12/10/23 History diazepam 2 mg tablet 2 mg PO BID 11/28/21 12/10/23 History diphenhydramine HCl 25 mg capsule 25 mg PO HS 11/28/21 12/10/23 History (Benadryl) duloxetine 60 mg capsule,delayed 60 mg PO BID 11/28/21 12/10/23 History release furosemide 20 mg tablet 20 mg PO DAILY 11/28/21 12/10/23 History melatonin 10 mg tablet 10 mg PO HS 11/28/21 12/10/23 History naproxen 500 mg tablet 500 mg PO BID PRN Pain 11/28/21 12/10/23 History norethindrone (contraceptive) 0.35 0.35 mg PO DAILY 11/28/21 12/10/23 History mg tablet ondansetron 4 mg disintegrating 4 mg PO Q8H PRN Nausea 11/28/21 12/10/23 History tablet pregabalin 100 mg capsule (Lyrica) 100 mg PO TID 11/28/21 12/10/23 History spironolactone 50 mg tablet 50 mg PO TID 11/28/21 12/10/23 History amoxicillin 500 mg capsule 500 mg PO BID 06/10/23 12/10/23 History ascorbic acid 30 mg-collagen, 1 tablet PO DAILY 06/10/23 12/10/23 History hydrolyzed 833.3 mg tablet (Collagen Skin Renewal) oxybutynin chloride 5 mg tablet 5 mg PO HS 06/10/23 12/10/23 History fluconazole 100 mg tablet 100 mg PO DAILY 12/10/23 12/10/23 History nortriptyline 75 mg capsule 75 mg PO HS 12/10/23 12/10/23 History Allergies Allergy/AdvReac Type Severity Reaction Status Date / Time adhesive tape AdvReac Mild Blister Verified 12/10/23 11:03 Exam Narrative: she is wheelchair-bound Assessment and Plan Assessment and plan (1) Uninhibited neurogenic bladder: Code(s): N31.9 - Neuromuscular dysfunction of bladder, unspecified Status: Acute Assessment and Plan: Botox 200 units
--- NOTE | 2023-12-13 07:15 | WPDHPUPDATE1 ---
History and Physical Update Update Date/Time: 12/13/23 07:15 History and Physical has been reviewed, including an updated exam of the patient. There are NO changes in the patient's condition. Risks, benefits, and alternatives have been discussed and questions answered. Patient agrees to proceed with procedure.
--- NOTE | 2023-12-13 07:53 | WPDANESEPPF ---
Anes - Initial Pre Proc Eval Procedure: Operation Date: 12/13/23 09:00 Proposed Procedures p Cystoscopy, Botox Injection - Junito Montes MD Date/Time: 12/13/23 07:53 Surgeon: Junito Montes MD Pre Op Diagnosis: neuropathic bladder Patient Data Age: 43 Gender: F Height: 1.65 m Weight: 81.8 kg Allergies Allergy/AdvReac Type Severity Reaction Status Date / Time adhesive tape AdvReac Mild Blister Verified 12/10/23 11:03 Home Medications Medication Instructions Recorded Confirmed Type Lactobacillus acidophilus and 1 cap PO DAILY 11/28/21 12/10/23 History rhamnosus 15 billion cell capsule (Probiotic) apixaban 2.5 mg tablet (Eliquis) 2.5 mg PO BID 11/28/21 12/10/23 History apple cider vinegar 300 mg tablet 300 mg PO DAILY 11/28/21 12/10/23 History baclofen 10 mg tablet See Rx Instructions .Route .COMPLEX 11/28/21 12/10/23 History bisacodyl 5 mg tablet,delayed 5 mg PO HS 11/28/21 12/10/23 History release (Dulcolax (bisacodyl)) buspirone 7.5 mg tablet 7.5 mg PO BID 11/28/21 12/10/23 History calcium carbonate 500 mg-vitamin 1 tablet PO BID 11/28/21 12/10/23 History D3 5 mcg (200 unit) tablet cetirizine 10 mg tablet (Zyrtec) 10 mg PO DAILY 11/28/21 12/10/23 History diazepam 2 mg tablet 2 mg PO BID 11/28/21 12/10/23 History diphenhydramine HCl 25 mg capsule 25 mg PO HS 11/28/21 12/10/23 History (Benadryl) duloxetine 60 mg capsule,delayed 60 mg PO BID 11/28/21 12/10/23 History release furosemide 20 mg tablet 20 mg PO DAILY 11/28/21 12/10/23 History melatonin 10 mg tablet 10 mg PO HS 11/28/21 12/10/23 History naproxen 500 mg tablet 500 mg PO BID PRN Pain 11/28/21 12/10/23 History norethindrone (contraceptive) 0.35 0.35 mg PO DAILY 11/28/21 12/10/23 History mg tablet ondansetron 4 mg disintegrating 4 mg PO Q8H PRN Nausea 11/28/21 12/10/23 History tablet pregabalin 100 mg capsule (Lyrica) 100 mg PO TID 11/28/21 12/10/23 History spironolactone 50 mg tablet 50 mg PO TID 11/28/21 12/10/23 History amoxicillin 500 mg capsule 500 mg PO BID 06/10/23 12/10/23 History ascorbic acid 30 mg-collagen, 1 tablet PO DAILY 06/10/23 12/10/23 History hydrolyzed 833.3 mg tablet (Collagen Skin Renewal) oxybutynin chloride 5 mg tablet 5 mg PO HS 06/10/23 12/10/23 History fluconazole 100 mg tablet 100 mg PO DAILY 12/10/23 12/10/23 History nortriptyline 75 mg capsule 75 mg PO HS 12/10/23 12/10/23 History Patient hx anesthesia problems: none Family hx anesthesia problems: none Results Review: All pre-operative results and documents have been reviewed as part of the pre-operative evaluation. [facility] Past Medical History Medical History Anxiety Quadriplegia Social History Social History Smoking status: Never smoker Alcohol intake: former Substance use: current Substance use type: marijuana Other substance usage details: CBD OIL DROPS Living arrangements: with family Additional living arrangements comments: BOYFRIEND Spiritual care concerns: No Anes - Eval Final PreProcedure Day of Procedure 12/13/23 07:53 Patient weight: obese Heart: regular rate and rhythm Lungs: clear to auscultation Airway: Mallampati scale class II Neurological: alert and oriented Last oral intake: >/= 8 hours ASA classification: III Emergent: no Anesthetic plan: proceed Anesthesia type and monitoring: general GIVS and standard monitoring Results Review: All pre-operative results and documents have been reviewed as part of the pre-operative evaluation. Informed Consent: The patient's anesthetic plan and its attendant risks and benefits were discussed with the patient/family/POA. Questions were solicited and answers provided to the satisfaction of the patient/family/POA.
[2023-12-13 08:00] VITALS: BP 119/85; PULSE 81; RESP 16; TEMP 36.2; O2SAT 98; BMI 30.4
[2023-12-13 08:43] LABS: Anion Gap 11 mmol/L (4-12); Blood Urea Nitrogen 12 mg/dL (7-17); Calcium 9.3 mg/dL (8.4-10.2); Carbon Dioxide 22 mmol/L (22-30); Chloride 102 mmol/L (98-107); Estimated CRCL calculation 130 ml/min; Estimated Glomerular Filt Rate > 60; Glucose 100 mg/dL (65-110); Potassium 4.3 mmol/L (3.4-5.0); Sodium 135 mmol/L (137-145)
[2023-12-13] MEDS: LACTATED RINGERS 1,000 ML 30 ML IV CONT (09:00)
[2023-12-13] MEDS: ceFAZolin 2 GM/D5W 50 ML 2 GM/50 ML BAG IVPB (09:08)
[2023-12-13] MEDS: BOTULINUM TOXIN TYPE A (*SPLP) 100 UNITS VIAL 200 UNITS XX (09:24)
[2023-12-13 09:32] VITALS: BP 117/71; PULSE 76; RESP 12; O2SAT 95
--- NOTE | 2023-12-13 09:42 | W.PM.PROC2 ---
Procedure Note - Detailed Date of Procedure 12/13/23 Pre-op Diagnosis neuropathic bladder Post-op Diagnosis Same Procedure Performed Cystoscopy injection of Botox, 200 units Surgeon Junito Montes MD Anesthesia MAC Indications A young woman with neurogenic bladder we do Botox injections every 6 months for her neurogenic incontinence Findings Consistent with neurogenic bladder Description of Procedure She is correctly identified. Informed consent was obtained. From the operating room. She was given monitored anesthesia care. She was prepped and draped sterile fashion. Time-out performed. Cystoscopy revealed trabeculated bladder. Otherwise normal ureteral orifices were normal. I mixed 200 units of Botox in 20 cc preservative-free saline. I injected throughout the bladder with some urothelial muscular layer. I injected the trigone as well. I did not inject ureteral orifice. I drained the bladder. There was no bleeding. She was awakened transferred to PACU in stable condition Estimated Blood Loss 1 Pathology None sent Complications No immediate complications Condition Stable Disposition PACU
[2023-12-13 10:00] VITALS: BP 123/85; PULSE 88; RESP 16; O2SAT 95
--- NOTE | 2023-12-13 10:54 | SUR.PHASEII ---
DRESSED BY BOYFRIEND. TRANSFERRED TO WHEELCHAIR WITH SHUBHAM WITH 2 STAFF. TOLERATED WELL.
== END 2023-12-13 10:35 | disposition home or self-care (01) ==
PROVIDERS: Anesthesiology; PCP Family Medicine; Visit Provider Urology
PROC: 3E0K8GC Introduction of Other Therapeutic Substance into Genitourinary Tract, Via Natural or Artificial Opening Endoscopic (ICD-10-PCS; CPT 52287; principal; 2023-12-13 09:00)
DX: N31.9 Neuromuscular dysfunction of bladder, unspecified (principal); G82.50 Quadriplegia, unspecified; F41.9 Anxiety disorder, unspecified; Z79.01 Long term (current) use of anticoagulants
CPT/HCPCS: 52287; 36415; 80048; J0585; J0690; J2250; J2405; J2704; J7120

== ENCOUNTER 2024-06-12 00:37 | Day surgery (SDC) | payer MEDICARE, SELFPAY ==
[2024-06-03 13:02] VITALS: BMI 29.8
--- NOTE | 2024-06-03 13:09 | PC.NURSE ---
Report to the Outpatient Waiting Room, entrance under the green pavilion located off [facility], at time _0630_ on date _[id number]_. Planned Procedure Time: _0830_.? Time changes happen often and if your time is changed the preop area will call you the afternoon before. - You and your visitor will be asked to self-screen and do not enter if you have any COVID symptoms. Please call surgeon if you need to reschedule. - A mask is optional within the hospital at this time. Patients may have clear liquids (water, carbonated beverages, clear teas, apple juice) until 3 hours prior to surgery with a maximum of 20 ounces. - No food from midnight until time of surgery and no smoking, or chewing tobacco (or any form of nicotine). No chewing gum, candy or mints. Take only the following medications with a SIP of water on the morning of surgery: ___Diazepam, Duloxetine, Buspirone, Norethindrone and Pregabalin____ DO NOT STOP ANY OF YOUR OTHER PRESCRIPTION MEDICATIONS PRIOR TO SURGERY EXCEPT THE FOLLOWING Hold all vitamins and supplements for 3 days per anesthesiologist. Medications to discontinue per physician ____Says is stopping Eliquis 2 days before surgery. Date to take last leqi___[id number]___ Please no make-up, nail bengali, hairspray, perfume, deodorant, or body powder the day of surgery.? No jewelry (including any body piercings) or valuables the day of surgery, leave them at home.? Please take a shower or bath the night before, or the morning of, surgery with an antibacterial soap.? Wear comfortable, loose fitting clothing.? - Jewelry must be removed prior to entering the operating room.? Rings and piercings that are not removed may be cut off. - The hospital will not accept responsibility for valuables.? - Please leave all valuables, including medications, at home the day of surgery. If you are going home after surgery, a licensed fast food delivery driver must drive you home.? - NO public transportation without another adult if you receive anesthesia. - We recommend that an adult stay with you for 24 hours following discharge. - We also recommend that you do not drive, make important decision, drink alcoholic beverages, or take any drugs that were not prescribed by your health care provider for at least 24 hours after your discharge time. Follow any additional instructions given to you from your surgeon. Telephone instructions given to __Irina__and asked if any additional questions and then verbalized understanding. Patient advised to call surgeon office or pre surgery nurse liaison [phone] if any additional questions.
--- NOTE | 2024-06-07 17:55 | PM.IMHP ---
H&P: HPI History of Present Illness Date/Time: 06/07/24 17:55 Chief Complaint: neurogenic bladder Narrative: presents for repeat botox Review of Systems Review of Systems: All systems reviewed & are unremarkable except as noted in HPI and below PMFSH Past Medical History Medical History Anxiety Quadriplegia Social History Social History Smoking status: Never smoker Alcohol intake: former Substance use: current Substance use type: marijuana Other substance usage details: for sleep Living arrangements: with family Additional living arrangements comments: BOYFRIEND Spiritual care concerns: No Meds Home Medications and Allergies Home Medications ?Medication ?Instructions ?Recorded ?Confirmed ?Type Lactobacillus acidophilus and 1 cap PO DAILY 11/28/21 06/03/24 History rhamnosus 15 billion cell capsule (Probiotic) apixaban 2.5 mg tablet (Eliquis) 2.5 mg PO BID 11/28/21 06/03/24 History apple cider vinegar 300 mg tablet 300 mg PO DAILY 11/28/21 06/03/24 History baclofen 10 mg tablet See Rx Instructions .Route .COMPLEX 11/28/21 06/03/24 History bisacodyl 5 mg tablet,delayed 5 mg PO HS 11/28/21 06/03/24 History release (Dulcolax (bisacodyl)) buspirone 7.5 mg tablet 7.5 mg PO BID 11/28/21 06/03/24 History calcium 500 mg (as 1 tablet PO BID 11/28/21 06/03/24 History carbonate)-vitamin D3 5 mcg (200 unit) tablet cetirizine 10 mg tablet (Zyrtec) 10 mg PO DAILY 11/28/21 06/03/24 History diazepam 2 mg tablet 2 mg PO BID 11/28/21 06/03/24 History diphenhydramine HCl 25 mg capsule 25 mg PO HS 11/28/21 06/03/24 History (Benadryl) duloxetine 60 mg capsule,delayed 60 mg PO BID 11/28/21 06/03/24 History release furosemide 20 mg tablet 20 mg PO DAILY 11/28/21 06/03/24 History melatonin 10 mg tablet 10 mg PO HS 11/28/21 06/03/24 History naproxen 500 mg tablet 500 mg PO BID PRN Pain 11/28/21 06/03/24 History norethindrone (contraceptive) 0.35 0.35 mg PO DAILY 11/28/21 06/03/24 History mg tablet ondansetron 4 mg disintegrating 4 mg PO Q8H PRN Nausea 11/28/21 06/03/24 History tablet pregabalin 100 mg capsule (Lyrica) 100 mg PO TID 11/28/21 06/03/24 History spironolactone 50 mg tablet 50 mg PO TID 11/28/21 06/03/24 History amoxicillin 500 mg capsule 500 mg PO BID 06/10/23 06/03/24 History ascorbic acid 30 mg-collagen, 1 tablet PO DAILY 06/10/23 06/03/24 History hydrolyzed 833.3 mg tablet (Collagen Skin Renewal) oxybutynin chloride 5 mg tablet 5 mg PO HS 06/10/23 06/03/24 History nortriptyline 75 mg capsule 75 mg PO HS 12/10/23 06/03/24 History Allergies Allergy/AdvReac Type Severity Reaction Status Date / Time adhesive tape AdvReac Mild Blister Verified 06/03/24 12:57 Exam Narrative: WC bound Assessment and Plan Assessment and plan (1) Uninhibited neurogenic bladder: Code(s): N31.9 - Neuromuscular dysfunction of bladder, unspecified Status: Acute Assessment and Plan: botox 200U
--- NOTE | 2024-06-11 12:48 | P.PNAN_ITS ---
Anes - Initial Pre Proc Eval Procedure: Operation Date: 06/12/24 09:30 Proposed Procedures p Cystoscopy, Botox Injection - Junito Montes MD Date/Time: 06/11/24 12:48 Surgeon: Junito Montes MD Pre Op Diagnosis: reflex neuropathic bladder Patient Data Age: 44 Gender: F Height: 1.65 m Weight: 81.4 kg Allergies Allergy/AdvReac Type Severity Reaction Status Date / Time adhesive tape AdvReac Mild Blister Verified 06/03/24 12:57 Home Medications ?Medication ?Instructions ?Recorded ?Confirmed ?Type Lactobacillus acidophilus and 1 cap PO DAILY 11/28/21 06/03/24 History rhamnosus 15 billion cell capsule (Probiotic) apixaban 2.5 mg tablet (Eliquis) 2.5 mg PO BID 11/28/21 06/03/24 History apple cider vinegar 300 mg tablet 300 mg PO DAILY 11/28/21 06/03/24 History baclofen 10 mg tablet See Rx Instructions .Route .COMPLEX 11/28/21 06/03/24 History bisacodyl 5 mg tablet,delayed 5 mg PO HS 11/28/21 06/03/24 History release (Dulcolax (bisacodyl)) buspirone 7.5 mg tablet 7.5 mg PO BID 11/28/21 06/03/24 History calcium 500 mg (as 1 tablet PO BID 11/28/21 06/03/24 History carbonate)-vitamin D3 5 mcg (200 unit) tablet cetirizine 10 mg tablet (Zyrtec) 10 mg PO DAILY 11/28/21 06/03/24 History diazepam 2 mg tablet 2 mg PO BID 11/28/21 06/03/24 History diphenhydramine HCl 25 mg capsule 25 mg PO HS 11/28/21 06/03/24 History (Benadryl) duloxetine 60 mg capsule,delayed 60 mg PO BID 11/28/21 06/03/24 History release furosemide 20 mg tablet 20 mg PO DAILY 11/28/21 06/03/24 History melatonin 10 mg tablet 10 mg PO HS 11/28/21 06/03/24 History naproxen 500 mg tablet 500 mg PO BID PRN Pain 11/28/21 06/03/24 History norethindrone (contraceptive) 0.35 0.35 mg PO DAILY 11/28/21 06/03/24 History mg tablet ondansetron 4 mg disintegrating 4 mg PO Q8H PRN Nausea 11/28/21 06/03/24 History tablet pregabalin 100 mg capsule (Lyrica) 100 mg PO TID 11/28/21 06/03/24 History spironolactone 50 mg tablet 50 mg PO TID 11/28/21 06/03/24 History amoxicillin 500 mg capsule 500 mg PO BID 06/10/23 06/03/24 History ascorbic acid 30 mg-collagen, 1 tablet PO DAILY 06/10/23 06/03/24 History hydrolyzed 833.3 mg tablet (Collagen Skin Renewal) oxybutynin chloride 5 mg tablet 5 mg PO HS 06/10/23 06/03/24 History nortriptyline 75 mg capsule 75 mg PO HS 12/10/23 06/03/24 History Patient hx anesthesia problems: none Family hx anesthesia problems: none Results Review: All pre-operative results and documents have been reviewed as part of the pre- operative evaluation. [facility] Past Medical History Medical History Anxiety Quadriplegia Social History Social History Smoking status: Never smoker Alcohol intake: former Substance use: current Substance use type: marijuana Other substance usage details: for sleep Living arrangements: with family Additional living arrangements comments: BOYFRIEND Spiritual care concerns: No Anes - Eval Final PreProcedure Day of Procedure 06/11/24 12:48 Patient weight: overweight Heart: regular rate and rhythm Lungs: clear to auscultation Airway: Mallampati scale class II Neurological: alert and oriented Last oral intake: >/= 8 hours ASA classification: III Emergent: no Anesthetic plan: proceed Anesthesia type and monitoring: general GIVS and standard monitoring Results Review: All pre-operative results and documents have been reviewed as part of the pre- operative evaluation. Informed Consent: The patient's anesthetic plan and its attendant risks and benefits were discussed with the patient/family/POA. Questions were solicited and answers provided to the satisfaction of the patient/family/POA.
--- OUTSIDE RECORDS SUMMARY | 2024-06-12 00:39 | XMS_ITS | Encounter Summary ---
Author Organization [facility] Address [address] [place] [address] Phone Care Team Providers Care Jewelry Internship Name Role Phone Misael Grant MD Primary Care Provider [phone] Kavya Cooper MD Unavailable [phone] Juliet Moseley MD Unavailable Gisela Aldridge MD Unavailable Bolssom Hook MD Unavailable [phone] Peg You Unavailable Unavailable Rufina Khan DPT Unavailable Encounter Details Date Type Department Care Team (Late st Contact Info) Description 05/30/2021 Orders Only [facility] PMR [phone] Scanning, Provider Social History Tobacco Use Types Packs/Day Years Used Date Smoking Tobacco: Never Smokeless Tobacco: Never Alcohol Use Standard Drinks/Week Comments Yes 0 (1 standard drink = 0.6 oz pur e alcohol) 4-5 drinks every 2-3 weeks Humiliation, Afraid, Rape, and Kick questionnair e Answer Date Recorded Fear of Current or Ex-Partner Patient declined 0 08/07/2018 Emotionally Abused Patient declined 08/07/2018 Physically Abused Patient declined 08/07/2018 Sexually Abused Patient declined 08/07/2018 Social Connection and Isolation Panel [NHANES] A nswer Date Recorded Frequency of Communication with Friends and Fami ly Patient declined 08/07/2018 Frequency of Social Gatherings with Friends and Family Patient declined 08/07/2018 Attends Anabaptism Services Patient declined 05/2018 Active Member of Clubs or Organizations Patient declined 08/07/2018 Attends Club or Organization Meetings Patient de clined 08/07/2018 Marital Status Patient declined 08/07/2018 Overall Financial Resource Strain (CARDIA) Answe r Date Recorded Difficulty of Paying Living Expenses Patient dec lined 08/07/2018 [facility] - Occupational Stress Questionnaire Answer Date Recorded Feeling of Stress Patient declined 08/07/2018 Exercise Vital Sign Answer Date Recorde d Days of Exercise per Week Patient declined 08/07 Minutes of Exercise per Session Patient declined 08/07/2018 Hunger Vital Sign Answer Date Recorded Worried About Running Out of Food in the Last Ye ar Patient declined 08/07/2018 Ran Out of Food in the Last Year Patient decline d 08/07/2018 PRAPARE - Transportation Answer Date Re corded Lack of Transportation (Medical) Patient decline d 08/07/2018 Lack of Transportation (Non-Medical) Patient dec lined 08/07/2018 Comments No Sex and Gender Information Value Date Recorded Sex Assigned at Not on file Legal Sex Female 7:50 PM CDT Gender Identity Female 08/09/2020 10:46 AM CDT Sexual Orientation Not on file Occupation Industry Job Start Date Job End Date disability Not on file Not on file Not on file documented as of this encounter Plan of Treatment Not on file documented as of this encounter Procedures Procedure Name Priority Date/Time Associated Diagnosis Comments SCAN - RADIOLOGY/IMAGING 05/30/2021 documented in this encounter Results * SCAN - RADIOLOGY/IMAGING (05/30/2021) Anatomical Region Laterality Modality Other us Provider Scanning Final Result documented in this encounter Visit Diagnoses Not on filedocumented in this encounter Care Teams Jewelry Internship Relationship Specialty Start Date End Date Misael Grant MD [address] [place] [address] [address] [place] [address] PCP - General Family Medicine 09/17/17 Kavya Cooper MD [address] [place] [address] Referring Physician Neurology 10/02/17 Juliet Moseley MD [address] [place] [address] Referring Physician Physical Medicine and Rehabilitation 10/02/17 Gisela Aldridge MD [address] [place] [address] Referring Physician Neurology 10/02/17 Blossom Hook MD [address] [place] [address] Medical Oncologist/Hematologi st Hematology and Oncology 10/02/17 Peg You 11/15/17 Rufina Khan DPT Physical Therapist Physical Therapy 01/08/24 04/12/24 documented as of this encounter
--- OUTSIDE RECORDS SUMMARY | 2024-06-12 00:39 | XMS_ITS | Encounter Summary ---
Author Organization [facility] Address [address] [place] [address] Phone Care Team Providers Care Relations Mgr Name Role Phone Misael Grant MD Primary Care Provider [phone] Misael Grant MD Primary Care Provider [phone] Kavya Cooper MD Unavailable [phone] Juliet Moseley MD Unavailable [phone] Gisela Aldridge MD Unavailable Blossom Hook MD Unavailable [phone] Gena Davies OT Unavailable Unavailab Peg Lowe Unavailable Unavailable Rafia Osuna OT Unavailable [phone] Sharita Weldon PT Unavailable [phone] Peg Bryant OT Unavailable [phone] Rufina Khan DPT Unavailable [phone] Encounter Details Date Type Department Care Team (Latest Contact Info) Description 10/31/2016 Orders Only [facility] CONVERSION Scanning, Provider Social History Tobacco Use Types Packs/Day Years Used Date Smoking Tobacco: Never Assessed Comments Unknown Sex and Gender Information Value Date Recorded Sex Assigned at Not on file Legal Sex Female 7:50 PM CDT Gender Identity Female 08/09/2020 10:46 AM CDT Sexual Orientation Not on file documented as of this encounter Plan of Treatment Not on file documented as of this encounter Procedures Procedure Name Priority Date/Time Associated Diagnosis Comments VASCULAR LABORATORY REPORT 10/31/2016 9:31 PM CDT documented in this encounter Results * VASCULAR LABORATORY REPORT (10/31/2016 9:31 PM CDT) Anatomical Region Laterality Modality Ultrasound us Provider Scanning CV VASCULAR PROCEDURES Final R esult documented in this encounter Visit Diagnoses Not on filedocumented in this encounter Care Teams Relations Mgr Relationship Specialty Start Date End Date Misael Grant MD [address] [place] [address] PCP - General 11/11/16 09/16/17 Misael Grant MD [address] [place] [address] PCP - General Family Medicine 09/17/17 Kavya Cooper MD [address] [place] [address] Referring Physician Neurology 10/02/17 Juliet Moseley MD [address] [place] [address] Referring Physician Physical Medicine and Rehabilitation 10/02/17 Gisela Aldridge MD [address] [place] [address] Referring Physician Neurology 10/02/17 Blossom Hook MD [address] [place], [place] [id number] Medical Oncologist/Hematologi Hematology and Oncology 10/02/17 Gena Davies, OT Occupational Therapist Occupational Therapy 11/07/17 05/07/18 Peg You 11/15/17 Rafia Osuna, OT [address] [address] Occupational Therapist Occupational Therapy 12/26/17 02/10/18 Sharita Weldon, PT [address] [address] Physical Therapist Physical Therapy 12/26/17 08/21/20 Peg Bryant, OT [address] [place] [address] Occupational Therapist Occupational Therapy 01/07/19 03/10/19 Rufina Khan DPT [address] [place] [address] Physical Therapist Physical Therapy 01/08/24 04/12/24 documented as of this encounter
--- OUTSIDE RECORDS SUMMARY | 2024-06-12 00:39 | XMS_ITS | Encounter Summary ---
Author Organization [facility] Address [address] [place] [address] Phone Care Team Providers Care Waste Collector Name Role Phone Misael Grant MD Primary Care Provider [phone] Kavya Cooper MD Unavailable [phone] Juliet Moseley MD Unavailable Gisela Aldridge MD Unavailable [phone] Blossom Hook MD Unavailable [phone] Peg You Unavailable Unavailable Rufina Khan DPT Unavailable Encounter Details Date Type Department Care Team (Late st Contact Info) Description 06/04/2022 Telephone [facility] Hematology [address] [facility] Advanced Medicine 7[address] [place] [address] [place] [address] Lopez Miranda, SHELLF[employer] BED WORKER Social History Tobacco Use Types Packs/Day Years [...] Friends and Family Patient declined 08/07/2018 Attends Sikhism Services Patient declined 05/2018 Active Member of Clubs or Organizations Patient declined 08/07/2018 Attends Club or Organization Meetings Patient de clined 08/07/2018 Marital Status Patient declined 08/07/2018 AUDIT-C Answer Date Recorded Q1: How often do you have a drink containing alcohol? Never 12/29/2021 Q2: How many drinks containi ng alcohol do you have on a typical day when you are drinking? Patient does not drink Q3: How often do you have si x or more drinks on one occasion? Never 12/29/2021 Overall Financial Resource Strain (CARDIA) Answe r Date Recorded Difficulty of Paying Living Expenses Patient dec lined 08/07/2018 [facility]at ional Health - Occupational [...] on file documented as of this encounter Visit Diagnoses Not on filedocumented in this encounter Care Teams Waste Collector Relationship Specialty Start Date End Date Misael Grant MD [address] [place] [address] [address] PCP - General Family Medicine 09/17/17 Kavya Cooper MD [address] [place] [address] Referring Physician Neurology 10/02/17 Juliet Moseley MD [address] [place] [address] Referring Physician Physical Medicine and Rehabilitation 10/02/17 Gisela Aldridge MD [address] [place] [address] Referring Physician Neurology 10/02/17 Blossom Hook MD [address] [place] [address] Medical Oncologist/Hematologi st Hematology and Oncology 10/02/17 Peg You 11/15/17 Rufina Khan DPT Physical Therapist Physical Therapy 01/08/24 04/12/24 documented as of this encounter
--- OUTSIDE RECORDS SUMMARY | 2024-06-12 00:39 | XMS_ITS | Clinical Summary ---
Author Organization [facility] al Address [address] [place] [address] Care Team Providers Care Frothing Machine Operator Name Role Phone Ian Grant MD Primary Care Provider [phone] Kavya Cooper MD Unavailable [phone] Juliet Moseley MD Unavailable [phone] Gisela Aldridge MD Unavailable [phone] Blossom Hook MD Unavailable [phone] Peg You Unavailable Unavailable Allergies Active Allergy Reactions Criticality Noted Date Comments Adhesive Blisters,Rash High 11/12/2018 Adhesives pulls off thin top layer of skin. Tolerates paper tape Medications cetirizine (ZyrTEC) 10 mg tabletIndications:S easonal Allergic Rhinitis Take 1 tablet (10 mg total) by mouth daily before breakfast Active cloNIDine (CATAPRES) 0.1 mg tabletIndications:h ypertension Take 1 tablet (0.1 mg total) by mouth daily as needed for high blood pressure Active diazePAM (VALIUM) 2 mg tabletIndications:M uscle Spasm Take 2 tablets (4 mg total) by mouth 2 (two) times a day Active midodrine (PROAMATINE) 2.5 mg tabletIndications:S ymptomatic Orthostatic Hypotension Take 1 tablet (2.5 mg total) by mouth 2 (two) times a day as needed (low blood pressure) Active naproxen (NAPROSYN) 500 mg tablet Take 1 tablet (500 mg total) by mouth daily as needed for pain Take with food 03/09/20 19 Active diphenhydrAMINE (BENADRYL) 25 mg capsuleIndications: sleep and allergies Take 1 tablet/capsul e (25 mg total) by mouth nightly Active melatonin 10 mg tabletIndications:s upplement for sleep Take 1 tablet (10 mg total) by mouth nightly Active spironolactone (ALDACTONE) 50 mg tabletIndications:h ypertension,acne Take 1 tablet (50 mg total) by mouth 2 (two) times a day 04/29/19 20 Active Lactobacillus acidophilus (PROBIOTIC ORAL)Indications:Fo r supplement Take 1 capsule by mouth daily before breakfast Active furosemide (LASIX) 20 mg tabletIndications:E angelica,hypertension Take 1 tablet (20 mg total) by mouth every morning 11/15/19 21 Active docusate sodium (COLACE) 250 mg capsuleIndications: constipation Take 1 capsule (250 mg total) by mouth 2 (two) times a day Active DULoxetine DR (CYMBALTA) 60 mg capsuleIndications: Anxiety with Depression,major depressive disorder Take 1 capsule (60 mg total) by mouth 2 (two) times a day Active pregabalin (LYRICA) 100 mg capsuleIndications: Neuropathic Pain Associated with Spinal Cord Injury Take 1 capsule (100 mg total) by mouth 3 (three) times a day Active busPIRone (BUSPAR) 10 mg tabletIndications:G eneralized Anxiety Disorder Take 1 tablet (10 mg total) by mouth 2 (two) times a day 01/24/20 22 Active valACYclovir (VALTREX) 500 mg tablet Take 1 tablet (500 mg total) by mouth as needed (HSV) 03/27/20 22 Active oxyBUTYnin XL (DITROPAN-XL) 10 mg 24 hr tabletIndications:N eurogenic Bladder Take 1 tablet (10 mg total) by mouth nightly 10/09/19 23 Active collagen/biotin/asc orbic acid (COLLAGEN 1500 PLUS C ORAL)Indications:Fo r supplement Take 1 capsule by mouth 2 (two) times a day Active amoxicillin 500 mg tabletIndications:a cne Take 1 tablet/capsul e (500 mg total) by mouth vault custodian before breakfast 12/08/19 23 Active senna-docusate (PERICOLACE) 8.6-50 mg Take 1 tablet by mouth daily 30 tablet 08/09/19 24 Active acetaminophen (TYLENOL) 500 mg tablet Take 1 tablet (500 mg total) by mouth every 6 (six) hours as needed for pain 30 tablet 08/09/19 24 Active ondansetron ODT (ZOFRAN-ODT) 4 mg disintegrating tablet Take 1 tablet (4 mg total) by mouth every 8 (eight) hours as needed for nausea or vomiting 20 tablet 08/09/19 24 Active nortriptyline (PAMELOR) 75 mg capsule 09/12/19 24 Active omeprazole (PriLOSEC) 20 mg capsule 09/12/19 24 Active norethindrone (MICRONOR) 0.35 mg tabletIndications:P regnancy Contraception Take 1 tablet (0.35 mg total) by mouth nightly 84 tablet 3 10/07/19 24 Active baclofen (LIORESAL) 10 mg tabletIndications:H and disorder,Muscle spasticity TAKE 2 TABLETS IN THE MORNING, ONE AND ONE-HALF TABLETS AT NOON, TWO TABLETS IN THE EVENING AND ONE AND ONE-HALF TABLETS AT BEDTIME 630 tablet 3 12/23/19 24 Active ALPRAZolam (XANAX) 0.5 mg tabletIndications:f or procedure Take 1-2 tablets (0.5-1 mg total) by mouth 3 (three) times a day as needed for anxiety 1-2 tablets by mouth 30 minutes prior to procedure 3 tablet 01/21/20 24 Active fondaparinux (Arixtra) 5 mg/0.4 mL syringe Inject 0.4 mL (5 mg total) under the skin daily 12 mL 5 06/11/19 25 Active apixaban (Eliquis) 2.5 mg tabletIndications:V enous thromboembolism Take 1 tablet (2.5 mg total) by mouth 2 (two) times a day 180 tablet 3 12/18/19 24 025 Discontin ued(Alter charo therapy) rivaroxaban (XARELTO) 10 mg tablet Take 1 tablet (10 mg total) by mouth daily 30 tablet 2 06/03/19 25 025 Discontin ued(Alter charo therapy) Hospital, Clinic, or Other Facility Administered Medication Ordered Dose Route Frequency Start Date End Date Status onabotulinumtoxin A (BOTOX) injection 100 UnitsIndications:Muscle spasticity 100 Units IM Once 05/18/2024 05/18/2024 Ended Active Problems Problem Noted Date Diagnosed Date Age-related osteoporosis wit hout current pathological fracture 03/11/2024 Cervical spinal cord injury, sequela 06/06/2023 Paraplegia 12/29/2021 Nausea and vomiting 07/16/2021 Chronic anticoagulation 02/02/2021 Absence of sensation 10/05/2019 Weakness 10/05/2019 Paraparesis 10/05/2019 Impairment of balance 10/05/2019 Coordination problem 10/05/2019 Abnormal uterine bleeding 06/08/2019 Overview (06/08/2019): Added automatically from request for surgery [id number] Hx of abnormal cervical Pap smear 06/08/2019 Overview (06/09/2019): Added automatically from request for surgery [id number] On continuous oral anticoagulation 04/16/2019 Iron deficiency anemia 12/10/2018 Chronic deep vein thrombosis (DVT) of proximal vein of both lower extremities 12/10/2018 Venous thromboembolism 12/10/2018 History of spinal cord injury 08/14/2018 Overview (08/14/2018): Added automatically from request for surgery [id number] H/O spinal cord injury 01/14/2018 Overview (01/14/2018): Added automatically from request for surgery [id number] Nerve compression syndrome 10/08/2017 Overview (10/08/2017): Added automatically from request for surgery [id number] Carpal tunnel syndrome of right wrist 10/08/2017 Overview (10/08/2017): Added automatically from request for surgery [id number] Spinal cord injury, cervical region, initial enc ounter 09/17/2017 Tetraplegia 08/16/2017 Muscle spasticity 03/29/2017 Vitamin deficiency 03/29/2017 Osteopenia 03/05/2017 Impaired mobility and ADLs 02/01/2017 Myofascial pain 02/01/2017 Neurogenic bladder 02/01/2017 Neurogenic bowel 02/01/2017 Neuropathic pain 02/01/2017 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 DVT (deep venous thrombosis) 01/16/2017 Deep vein thrombosis (DVT) 01/16/2017 Pulmonary embolism 01/16/2017 Paresthesia 11/15/2016 Quadriparesis (muscle weakness) 11/15/2016 Quadriparesis 11/15/2016 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 10/21/2016 Frequent UTI Anxiety Autoimmune disease Depression Autonomic dysreflexia Intermittent self-catheterization of bladder Blood coagulation disorder spasticity Hypotension Viral gastroenteritis Resolved Problems Problem Noted Date Diagnosed Date Resolved Date Neuropathic pain syndrome (non-herpetic) 02/01/2017 11/11/2017 Embolism (CMS/HCC) Encounters Date Type Department Care Team Description 06/09/2024 2:30 PM SEWAGE SCREEN OPERATOR Office Visit [facility] [address] [place] [address] [address] [place] [address] Juliet Moseley MD Tetraplegia (HCC) (Primary Dx); Muscle spasticity; spasticity; Impaired mobility and ADLs 05/25/2024 1:43 PM SEWAGE SCREEN OPERATOR - 05/25/2024 11:59 PM SEWAGE SCREEN OPERATOR Hospital Encounter [facility] [address] [place] [id number] Age-related osteoporosis without current pathological fracture (Primary Dx) Discharge Disposition: Discharge to home or self care 05/22/2024 1:10 PM SEWAGE SCREEN OPERATOR Lab [facility] [address] [place] [address] Age-related osteoporosis without current pathological fracture 05/22/2024 Orders Only [facility] [address] [place] [address] Kevin Wagner MD 05/18/2024 2:45 PM SEWAGE SCREEN OPERATOR Office Visit [facility] [address] [place] [address] [address]th [place] [address] Juliet Moseley MD Muscle spasticity (Primary Dx); Tetraplegia (HCC); spasticity; Neuropathic pain; Neurogenic bladder; Neurogenic bowel; Impaired mobility and ADLs 05/08/2024 Orders Only [facility] [address] [place] [address] Tracey Huang RN 04/17/2024 Orders Only [facility] [address] [place] [address] Mara Chu RN 04/09/2024 Orders Only [facility] [address] [facility] 12th [place] [address] [place] [address] Juliet Moseley MD Muscle spasticity (Primary Dx) 03/27/2024 Telephone [facility] [address] [place] [address] [address]th [place] [address] [place] [address] Juliet Moseley MD 03/26/2024 2:05 PM SEWAGE SCREEN OPERATOR Lab [facility] [address] [place] [id number] Age-related osteoporosis without current pathological fracture 03/20/2024 Telephone [facility] [address] [place] [address] [facility] [address]th [place] [address] [place] [address] Juliet Moseley MD 03/16/2024 Telephone [facility] [address]th [place] [address] [place] [address] Juliet Moseley MD from Last 3 Months Immunizations Immunization Administration Dates Next Due [facility] ([facility]) SARS-CoV-2 Vaccination 07/16/2020 Surgical History Surgery Date Site/Laterality Comments CARPAL TUNNEL RELEASE 10/06/2017 - 11/05/2017 Right WISDOM TOOTH EXTRACTION 04/08/2002 - 04/07/2003 LUMBAR PUNCTURE WO INJECTION , DIAGNOSTIC 05/28/2018 N/A CERVICAL BIOPSY W/ LOOP ELECTRODE EXCISION 04/08/2009 - 04/07/2010 NERVE TRANSFER 10/17/2018 Left nerve transfer BLADDER SURGERY 04/08/2017 - 04/07/2018 botox NERVE TRANSFER 03/14/2018 Right arm TENDON TRANSFER 12/29/2021 Left arm Medical History Medical History Date Comments Anxiety Autoimmune disease Depression H/O previous reproductive problem Hypertension Autonomic dysreflexia Intermittent self-catheteriz ation of bladder Deep vein thrombosis (HCC) spasticity Transverse myelitis (HCC) History of shingles History of h erpes zoster - shingles at age 19 and 33 yo. Both times not a full - blown outbreak at 19. At age 33, awoke neck on left hurt. SHingles. Went to ED (no rash then). Eventually developed 1-2 pink spots (Added by TW Conv) History of chicken pox History o f chicken pox - at age 7 (Added by TW Conv) Frequent UTI Urinary Self Cat h. 4 times per day Syncope 10/2016 woke up with pa ralysis History of blood transfusion 2016 Anemia GERD (gastroesophageal reflux disease) Pulmonary embolism (HCC) H/O blood clots 10/21/2016 Abnormal Pap smear of cervix Embolism (HCC) Nausea and vomiting 07/16/2021 Family History * Patient is adopted Medical History Relation Name Comments Sjogren's syndrome Cousin Family hi story of Sjogren's disease - (Added by TW Conv) Parkinsonism Maternal Grandmother Family history of Parkinson's disease - (Added by TW Conv) Sarcoidosis Mother's Brother Family hist ory of sarcoidosis - (Added by TW Conv) Rheum arthritis Other Family histo ry of rheumatoid arthritis - (Added by TW Conv) Anesthesia problems Neg Hx Broken bones Neg Hx Hip fracture Neg Hx Kyphosis Neg Hx Osteoporosis Neg Hx Scoliosis Neg Hx Relation Name Status Comments Cousin Father Alive Maternal Grandmother Mother Alive Mother's Brother Other Social History Tobacco Use Types Packs/Day Years Used Date Smoking Tobacco: Never Passive Smoke Exposure: Never Smokeless Tobacco: Never Tobacco Cessation:Counseling Given: Not Answered Alcohol Use Standard Drinks/Week Comments Yes 0 [...] Friends and Family Patient declined 08/07/2018 Attends Caodaism Services Patient declined 05/2018 Active Member of Clubs or Organizations Patient declined 08/07/2018 Attends Club or Organization Meetings Patient de clined 08/07/2018 Marital Status Patient declined 08/07/2018 AUDIT-C Answer Date Recorded Q1: How often do you have a drink containing alcohol? Never 08/09/2023 Q2: How many drinks containi ng alcohol do you have on a typical day when you are drinking? Patient does not drink Q3: How often do you have si x or more drinks on one occasion? Never 08/09/2023 Overall Financial Resource Strain (CARDIA) Answe r Date Recorded Difficulty of Paying Living Expenses Patient dec lined 08/07/2018 [facility] Pep of Occupat ional Health - Occupational Stress [...] of Transportation (Non-Medical) Patient dec lined 08/07/2018 Personal Safety Answer Date Recorded Have you ever been in or are you currently in a harmful physical or emotional relationship or is someone making you feel afraid or unsafe? Denies 08/09/2023 Comments No Sex and Gender Information Value Date Recorded Sex Assigned at Not on file Legal Sex Female 7:50 PM CDT Gender Identity Female 08/09/2020 10:46 AM CDT Sexual Orientation Not on file Occupation Industry Job Start Date Job End Date disability Not on file Not on file Not on file Obstetrics History Para Term AB IAB SAB Ectopic Multiple Livin g Live Births 0 0 0 0 0 0 0 0 0 0 0 Last Filed Vital Signs Vital Sign Reading Time Taken Comments Blood Pressure 89/72 05/25/2024 2:03 PM SEWAGE SCREEN OPERATOR Pulse 90 05/25/2024 2:03 PM SEWAGE SCREEN OPERATOR Temperature 36.5 C (97.7 F) 05/25/2024 2:03 PM SEWAGE SCREEN OPERATOR Respiratory Rate 16 05/25/2024 2:03 PM SEWAGE SCREEN OPERATOR Oxygen Saturation 97% 05/25/2024 2:03 PM SEWAGE SCREEN OPERATOR Inhaled Oxygen Concentration - - Weight 84.8 kg (187 lb) 06/09/2024 2:30 PM SEWAGE SCREEN OPERATOR Height 165.1 cm (5' 5 ) 01/21/2024 2:46 PM CDT Body Mass Index 31.12 01/21/2024 2:46 PM CDT Plan of Treatment Health Maintenance Due Date Last Done Comments Depression Screening 1982 DTaP/Tdap/Td Vaccine (1 - Tdap) 1993 Hepatitis B Screening 2000 Cervical Cancer Screening 06/01/20232022, 10/05/2019 Regular Well Visit/Exam 18-64 06/01/2023, 05/09/2021, 10/05/2019 Covid-19 Vaccine (2 - 2023-2 5 season) 2023 07/16/2020 Influenza Vaccine (#1) 2023 Breast Cancer Screening-Mammogram 10/07/2024 10/08/2023, 10/08/2023, 07/31/2022 Hepatitis C Screening Completed 12/04/2016 , 10/22/2016 HPV Vaccines Aged Out No longer eligi ble based on patient's age to complete this topic Pneumococcal vaccine <65 Aged Out No longer eligible based on patient's age to complete this topic Medical Devices Implanted Type Area Access Tech Device Identifier Shelf Expiration Date Model / Serial / Lot Daig Ada [id number] Device Closure Angio-Seal Vip Bondek-Plus Polyglyd L70 Cm Od6 Fr Odsec.035 In Vascular - [id number] Implanted:Qty : 1 on 01/27/2019 at [facility] [employer] [id number] / / Synthes 2mm 11mm Self Tap Self Retain Stardrive Cortex T6 Screw Bone 201.361.97 - [id number] Implanted:Qty : 1 on 11/02/2022 by Aminah Juarez MD at [facility] Left: Hand Synthes I 201.361.9 7 / / Synthes 2mm 11mm Self Tap Lock Self Retain Stardrive T6 Screw Bone 201.881 - [id number] Implanted:Qty : 2 on 11/02/2022 by Aminah Juarez MD at [facility] Left: Hand Synthes I 201.881 / / Synthes Lcp Pro-Sravan 45mm 6 Hole Low Profile Cut To Length Plate Bone 247.346 - [id number] Implanted:Qty : 1 on 11/02/2022 by Aminah Juarez MD at [facility] Left: Hand Synthes I 247.346 / / Synthes 2mm 10mm Self Tap Lock Self Retain Stardrive T6 Screw Bone 201.880 - [id number] Implanted:Qty : 1 on 11/02/2022 by Aminah Juarez MD at [facility] Left: Hand Synthes I 201.880 / / Synthes 2mm 10mm Self Tap Self Retain Stardrive Cortex T6 Screw Bone 201.360.97 - [id number] Implanted:Qty : 1 on 11/02/2022 by Aminah Juarez MD at [facility] Left: Hand Synthes I 201.360.9 7 / / [employer] Corkscrew Fiberwire 2.2mm 4mm 17.9mm 2 Needle Wire Foot Ankle 2-0 Ar-1318ft - [id number] Implanted:Qty : 1 on 08/09/2023 by Aminah Juarez MD at [facility] Left: Index Finger [employer] [id number] 04/07/2028 AR-1318FT / / [id number] Explanted Type Area Access Tech Device Identifier Shelf Expiration Date Model / Serial / Lot Synthes 2mm 10mm Self Tap Self Retain Stardrive Cortex T6 Screw Bone 201.360.97 - [id number] Explanted:Qty: 1 on 11/02/2022 at [facility] Left: Hand Synthes I 201.360.9 7 / / Synthes 2mm 11mm Self Tap Self Retain Stardrive Cortex T6 Screw Bone 201.361.97 - [id number] Explanted:Qty: 1 on 11/02/2022 at [facility] Left: Hand Synthes I 201.361.9 7 / / Synthes 2mm 9mm Self Tap Self Retain Stardrive Cortex T6 Screw Bone 201.359.97 - [id number] Explanted:Qty: 1 on 11/02/2022 at [facility] Left: Hand Synthes I 201.359.9 7 / / Synthes 2mm 12mm Self Tap Self Retain Stardrive Cortex T6 Screw Bone 201.362.97 - [id number] Explanted:Qty: 1 on 11/02/2022 at [facility] Left: Hand Synthes I 201.362.9 7 / / Procedures Procedure Name Priority Date/Time Associated Diagnosis Comments EGFR Routine 05/22/2024 1:19 PM SEWAGE SCREEN OPERATOR Age-related osteoporosis without current pathological fracture BASIC METABOLIC PANEL Routine 05/22/2024 1:19 PM SEWAGE SCREEN OPERATOR Age-related osteoporosis without current pathological fracture BOTOX INJECTION Routine 05/18/2024 2:45 PM SEWAGE SCREEN OPERATOR Muscle spasticity EGFR Routine 03/26/2024 12:02 PM SEWAGE SCREEN OPERATOR Age-related osteoporosis without current pathological fracture BASIC METABOLIC PANEL Routine 03/26/2024 12:02 PM SEWAGE SCREEN OPERATOR Age-related osteoporosis without current pathological fracture SCREENING MAMMOGRAM BILATERAL W GUILHERME Schedule Routine, Read Routine (OP Routine) 10/08/2023 1:08 PM CDT Encounter for screening mammogram for malignant neoplasm of breast PAP AND HIGH RISK HPV, REFLEX TO GENOTYPING Routine 06/01/2022 11:48 AM SEWAGE SCREEN OPERATOR HEPATITIS PANEL, ACUTE Routine Gen Lab 12/04/2016 12:59 AM CDT from Last 3 Months or Most Recently Relevant to Health Maintenance Results * eGFR (05/22/2024 1:19 PM SEWAGE SCREEN OPERATOR) eGFR >90 >=60 mL/min/1. 73 m2 Comment: Interpretive Data Reference Interval Normal >/= 90 mL/min/1.73m2 Mildly decreased* 60 - 89 mL/min/1.73m2 Mildly to moderately decreased 45 - 59 mL/min/1.73m2 Moderately to severely decreased 30 - 44 mL/min/1.73m2 Severely decreased 15 - 29 mL/min/1.73m2 Kidney Failure < 15 mL/min/1.73m2 *Relative to young adult level Estimated glomerular filtration rate is determined by the 2020 CKD-EPI equation recommended by the National Kidney Foundation (A Unifying Approach to GFR Estimation: Recommendations of the NKF-ASK Task Force on Reassessing the Inclusion of Race in Diagnosing Kidney Disease, JASN 2020). The CKD-EPI equation should not be used for patients with unstable renal function and has not been validated in children and those over 70. Current interpretive data was last reviewed 2021. Blood 05/22/2024 1:19 PM SEWAGE SCREEN OPERATOR 05/22/2024 2:11 PM SEWAGE SCREEN OPERATOR us Kevin Wagner MD LAB BLOOD ORDERABLES Final Resu lt [facility] [address] [facility] Department [place] [address] * (ABNORMAL) Basic metabolic panel (05/22/2024 1:19 PM SEWAGE SCREEN OPERATOR) Sodium 135 135 - 145 mmol/L Potassium, pl 4.0 3.3 - 4.9 mmol/L [facility] Chloride 102 97 - 110 mmol/L [facility] CO2 20(L) 22 - 32 mmol/L [facility] Anion gap 13 2 - 15 mmol/L [facility] BUN 16 6 - 25 mg/dL [facility] Creatinine 0.54(L) 0.60 - 1.10 mg/dL [facility] Glucose 98 70 - 199 mg/dL [facility] Comment: Interpretive Data Fasting glucose >/= 126 mg/dl is diagnostic for diabetes. Fasting is defined as no caloric intake for at least 8 hours. Fasting glucose between 100 mg/dl to 125 mg/dl is diagnostic of prediabetes. In a patient with classic symptoms of hyperglycemia or hyperglycemic crisis, a random glucose >/= 200 mg/dl is diagnostic for diabetes. In the absence of unequivocal hyperglycemia, results should be confirmed by repeat testing. The classification and Diagnosis of Diabetes Diabetes Care 202; 46: S19-S40. Current interpretive data was last revised 2022. Calcium 9.2 8.5 - 10.3 mg/dL [facility] Blood 05/22/2024 1:19 PM SEWAGE SCREEN OPERATOR 05/22/2024 2:11 PM SEWAGE SCREEN OPERATOR us Kevin Wagner MD LAB BLOOD ORDERABLES Final Resu lt [facility] [address] [facility] Department [place] [address] * Botox Injection (05/18/2024 2:45 PM SEWAGE SCREEN OPERATOR) Narrative Juliet Moseley MD - 05/18/2024 2:45 PM SEWAGE SCREEN OPERATOR Juliet Moseley MD 05/18/2024 2:55 PM Botox Injection Performed by: Juliet Moseley MD Authorized by: Juliet Moseley MD [facility] Protocol: Consent Given by: Patient Procedure Details - Botox Injection: Procedure Details: Buy and Bill 100 Units onabotulinumtoxin A (botulinum toxin type A, BOTOX) 100 unit injection us Juliet Moseley MD IN CLINIC/BEDSIDE ORDERABLES Final Result * eGFR (03/26/2024 12:02 PM SEWAGE SCREEN OPERATOR) eGFR >90 >=60 mL/min/1. 73 m2 Comment: Interpretive Data Reference Interval Normal >/= 90 mL/min/1.73m2 Mildly decreased* 60 - 89 mL/min/1.73m2 Mildly to moderately decreased 45 - 59 mL/min/1.73m2 Moderately to severely decreased 30 - 44 mL/min/1.73m2 Severely decreased 15 - 29 mL/min/1.73m2 Kidney Failure < 15 mL/min/1.73m2 *Relative to young adult level Estimated glomerular filtration rate is determined by the 2020 CKD-EPI equation recommended by the National Kidney Foundation (A Unifying Approach to GFR Estimation: Recommendations of the NKF-ASK Task Force on Reassessing the Inclusion of Race in Diagnosing Kidney Disease, JASN 2020). The CKD-EPI equation should not be used for patients with unstable renal function and has not been validated in children and those over 70. Current interpretive data was last reviewed 2021. Blood 03/26/2024 12:0 2 PM SEWAGE SCREEN OPERATOR 03/26/2024 12:16 PM SEWAGE SCREEN OPERATOR us Kevin Wagner MD LAB BLOOD ORDERABLES Final Resu lt Performing Organization Address City/[facility]/ZIP Co de Phone Number [facility] Department [place] [address] * (ABNORMAL) Basic metabolic panel (03/26/2024 12:02 PM SEWAGE SCREEN OPERATOR) Sodium 134(L) 135 - 145 mmol/L Potassium, pl 4.4 3.3 - 4.9 mmol/L [facility] Chloride 100 97 - 110 mmol/L [facility] CO2 22 22 - 32 mmol/L [facility] Anion gap 12 2 - 15 mmol/L [facility] BUN 13 6 - 25 mg/dL [facility] Creatinine 0.54(L) 0.60 - 1.10 mg/dL [facility] Glucose 82 70 - 199 mg/dL [facility] Comment: Interpretive Data Fasting glucose >/= 126 mg/dl is diagnostic for diabetes. Fasting is defined as no caloric intake for at least 8 hours. Fasting glucose between 100 mg/dl to 125 mg/dl is diagnostic of prediabetes. In a patient with classic symptoms of hyperglycemia or hyperglycemic crisis, a random glucose >/= 200 mg/dl is diagnostic for diabetes. In the absence of unequivocal hyperglycemia, results should be confirmed by repeat testing. The classification and Diagnosis of Diabetes Diabetes Care 202; 46: S19-S40. Current interpretive data was last revised 2022. Calcium 9.2 8.5 - 10.3 mg/dL [facility] Blood 03/26/2024 12:0 2 PM SEWAGE SCREEN OPERATOR 03/26/2024 12:13 PM SEWAGE SCREEN OPERATOR us Kevin Wagner MD LAB BLOOD ORDERABLES Final Resu lt Performing Organization Address [facility] Co de Phone Number [facility] Department [place] [address] * Screening Mammogram Bilateral W Guilherme (10/08/2023 1:08 PM CDT) Anatomical Region Laterality Modality Breast Bilateral Mammography Impressions 10/08/2023 1:34 PM CDT BI-RADS ATLAS category (overall): 1 - Negative There is no mammographic evidence of malignancy. A 1 year screening mammogram is recommended. The patient has been or will be contacted. We recommend annual screening mammography for women at average risk of breast cancer beginning at age 40, based on guidelines of the [employer] (ACR Practice Parameter for the Performance of Screening and Diagnostic Mammography) and [employer]. For women with and elevated risk of breast cancer, please refer to the ACR Practice Parameter for specific screening recommendations. The patient will be entered into a reminder system with a target due date of 1 year for her next screening exam. Narrative 10/08/2023 1:34 PM CDT Screening Mammogram Bilateral W Guilherme: 10/08/23 The study was acquired using full field digital technology and interpreted from soft copy. 2D digital mammographic views, as well as 3D digital tomosynthesis were performed in the CC and MLO projections. CLINICAL: Encounter for screening mammogram for malignant neoplasm of breast. No relevant medical history has been documented for this patient. No known family history of breast cancer. COMPARISONS: 07/31/2022 Screening Mammogram Bilateral W Guilherme BREAST TISSUE: The breasts have scattered areas of fibroglandular density. FINDINGS: The examination is limited due to difficulties with patient positioning. Patient is on a wheelchair. Best images possible obtained. Within these limitations, no new suspicious finding is seen in either breast. Ian Grant MD IMG MAMMO PROCEDURES Dianna l Result * Pap and High Risk HPV, reflex to Genotyping (06/01/2022 11:48 AM SEWAGE SCREEN OPERATOR) Pap test 06/01/2022 11:4 8 AM SEWAGE SCREEN OPERATOR 06/01/2022 12:38 PM SEWAGE SCREEN OPERATOR Narrative 06/06/2022 11:34 AM SEWAGE SCREEN OPERATOR EPIC results best viewed via link to PDF [facility] [place] [address] Note to Patients: This report may contain a detailed description of human tissue sent by a health care provider to the laboratory for pathologic evaluation. The content of this report is essential for diagnosis and may provide important critical findings. This information may be unfamiliar to patients to review without a medical professional present. It is advised that the patient review this report in the presence of a health care provider who can answer questions and explain the details. CYTOPATHOLOGY REPORT FINAL Patient Name: IRINA JASON Gender: F : 1980 (Age: 42) Address: [address] [place] [id number] Hospital #: [id number] Service: UNKNOWN Location: Patient Type: [facility] SPECIMEN Taken: 06/01/2022 Received: 06/01/2022 Accessioned: 06/01/2022 Reported: 06/06/2022 Physician(s): Loyda Gallagher M.D. FINAL INTERPRETATION SOURCE OF SPECIMEN Liquid based Thin Prep pap with HPV: STATEMENT OF ADEQUACY - Satisfactory for evaluation - Endocervical cells/transformation zone sample present GENERAL CATEGORIZATION: - Negative for squamous intraepithelial lesion or malignancy Comments HPV Result: NEGATIVE for high risk types of Human Papilloma Virus (HPV) RNA This probe detects the presence of HPV types: 16, 18, 31, 33, 35, 39, 45, 51, 52, 56, 58, 59, 66 and 68. This HPV test was performed at [facility] in [place], [place] utilizing the Gen-Probe Aptima assay. /06/06/2022 11:34 NYLA Feliciano(ASCP) Report Electronically Reviewed and Signed Out By NYLA Feliciano(ASCP) 06/06/2022 11:34:01 Cervicovaginal Cytology (Pap Test) Disclaimer: The Pap test is a screening test used to detect cervical cancer and its precursors; it is not a diagnostic procedure. False negative and false positive results do occur. Pap test results should be interpreted in the context of pertinent clinical information and biopsy results as indicated. [facility] Clinical Laboratory Improvement Amendments (CLIA) mandate that cytologic and histologic results be correlated for laboratory quality engineer medical device & improvement standards. FOR ALL HIGH-GRADE CASES we request submission of follow-up histological material and/or reports that have not been previously provided so that we may fulfill said required standards. Gross Description A. Liquid based Thin Prep pap with HPV: Cervical/vaginal - Screening ThinPrep Clinical Diagnosis and History Last Menstrual Period: unknown Menstrual History: Irregular Cycles Contraceptive History: Control Pill The patient is a 42 year old woman with history of LEEP, last pap NILM/neg. The HPV test was performed by [facility], [address] [place] [address]. Report Images and scanned documents, if included only viewable in PDF version The performance characteristics of some immunohistochemical stains, in-situ hybridization and fluorescence in-situ hybridization tests and immunophenotyping by flow cytometry cited in this report (if any) were determined by the Surgical Pathology Department at [facility] as part of an ongoing quality engineer medical device program and in compliance with federally mandated regulations drawn from the Clinical Laboratory Improvement Act of 1988 (CLIA '88). Some of these tests rely on the use of analyte specific reagents and are subject to specific labeling requirements by the US Food and Drug Administration. Such diagnostic tests may only be performed in a facility that is certified by the Department of Health and Human Services as a high complexity laboratory under CLIA '88. The FDA has determined that such clearance or approval is not necessary. This test is used for clinical purposes. It should not be regarded as investigational or for research. Nevertheless, federal rules concerning the medical use of analyte specific reagents require that the following disclaimer be attached to the report: This test was developed and its performance characteristics determined by the Surgical Pathology Department of [facility]. It has not been cleared or approved by the U. S. Food and Drug Administration. Loyda Gallagher MD LAB CYTOLOGY ORDERABLES Final Result * Hepatitis panel, acute (12/04/2016 12:59 AM CDT) Hep A IgM Nonreactive Nonreactive [facility] Comment: Interpretive Data If test is reported as GRAYZONE, new sample should be drawn in two weeks for testing. Current interpretive data was last revised on 2016. Hep B core IgM Nonreactive Nonreactive [facility] Comment: Interpretive Data If test is reported as GRAYZONE, new sample should be drawn for testing. Current interpretive data was last revised on 2016. Hep C Ab Nonreactive Nonreactive [facility] Comment: Interpretive Data Positive and greyzone results should be confirmed by a molecular method. If positive or greyzone, a second separately collected sample should be submitted for Hepatitis C Virus RNA. Detection and Quantitation by Real-Time Reverse Elevator Constructor-PCR.Current Interpretive data was last revised on 2016. HepBsAg Nonreactive Nonreactive [facility] Blood specimen (specimen) 12/04/2016 12:59 AM CDT 12/04/2016 1:57 AM CDT us Tracey Rizvi MD LAB MICROBI OLOGY - GENERAL ORDERABLES Edited Result - Final [facility] [address] Department [place] [address] from Last 3 Months or Most Recently Relevant to Health Maintenance Insurance MEDICARE [facility] Address: [address] [address] [employer] [facility] MEDICARE MEDICARE [facility] Address: [address] [address] Advance Directives For more information, please contact: [phone] Documents on File Type Date Recorded Patient Injection Mold Technician Expl anation ADVANCE DIRECTIVE 03/06/2017 12:00 AM POW ER OF CHIEF COMMUNICATIONS OFFICER FINANCIAL/MEDICAL * Full Code (Latest Code Status on File) Date Activated Date Inactivated Comments 12/29/2021 4:49 PM 12/30/2021 3:49 PM * Full Code Date Activated Date Inactivated Comments 07/16/2021 9:32 PM 07/18/2021 6:56 PM * Full Code Date Activated Date Inactivated Comments 01/27/2019 5:10 PM 01/27/2019 11:31 PM * Full Code Date Activated Date Inactivated Comments 01/27/2019 5:10 PM 01/27/2019 5:10 PM Care Teams Frothing Machine Operator Relationship Specialty Start Date End Date Ian Grant MD [address] [place] [address] [place] [address] PCP - General Family Medicine 09/17/17 Kavya Cooper MD [address] [place] [address] Referring Physician Neurology 10/02/17 Juliet Moseley MD [address] [place] [address] Referring Physician Physical Medicine and Rehabilitation 10/02/17 Gisela Aldridge MD [address] [place] [address] Referring Physician Neurology 10/02/17 Blossom Hook MD [address] [place] [address] Medical Oncologist/Hematologi st Hematology and Oncology 10/02/17 Peg You 11/15/17
--- OUTSIDE RECORDS SUMMARY | 2024-06-12 00:40 | XMS_ITS | Clinical Summary ---
Author Organization [facility] Address [facility] [place] [address] Care Team Providers Care Hand Flatwork Finisher Name Role Phone Misael Grant MD Primary Care Provider [phone] Misael Grant MD Unavailable [phone] BlinderBlossom MD Unavailable [phone] Allergies Active Allergy Reactions Criticality Noted Date Comments Tape Rash Low 12/26/2022 Adhesives pulls off thin top layer of skin. Tolerates paper tape Medications amoxicillin (AMOXIL) 500 MG capsule Take 1 capsule (500 mg total) by mouth daily. Takes daily for acne Active baclofen (LIORESAL) 10 MG tablet Take 1 tablet (10 mg total) by mouth 3 (three) times daily. 20 mg in the morning, 15 mg in the late morning, 20 mg in the afternoon, 15 mg at bedtime Active LORazepam (ATIVAN) 0.5 MG tablet Take 1 tablet (0.5 mg total) by mouth nightly. Active busPIRone (BUSPAR) 10 MG tablet Take 1 tablet (10 mg total) by mouth 2 (two) times daily. Active apixaban (ELIQUIS) 2.5 MG tablet Take 1 tablet (2.5 mg total) by mouth 2 (two) times daily. Active furosemide (LASIX) 20 MG tablet Take 1 tablet (20 mg total) by mouth daily. Active nortriptyline (PAMELOR) 75 MG capsule Take 1 capsule (75 mg total) by mouth nightly at bedtime. Active omeprazole EC (PRILOSEC OTC) 20 MG tablet Take 1 tablet (20 mg total) by mouth daily. Active oxybutynin XL (DITROPAN-XL) 10 MG 24 hr tablet Take 1 tablet (10 mg total) by mouth daily. Active pregabalin (LYRICA) 100 MG capsule Take 1 capsule (100 mg total) by mouth 3 (three) times daily. Active NAPROXEN OR Take 500 mg by mouth as needed. Active Calcium-Magnesi um-Vitamin D (CALCIUM 1200+D3 OR) Take 1 capsule by mouth daily. Active diphenhydrAMINE (BENADRYL) 25 MG capsule Take 1 capsule (25 mg total) by mouth nightly as needed for Itching. Active cetirizine (ZYRTEC) 10 MG tablet Take 1 tablet (10 mg total) by mouth daily. Active docusate sodium (COLACE) 100 MG capsule Take 1 capsule (100 mg total) by mouth 2 (two) times daily. Active NON FORMULARY Take 1 tablet by mouth daily. COLLAGEN Active probiotic (FLORAJEN3) Cap capsule Take 1 capsule by mouth daily with breakfast. Active NON FORMULARY Take 1 tablet by mouth nightly as needed. MELATONIN Active Active Problems No known active problems Family History * Patient is adopted Relation Status Comments Father Alive Mother Alive Social History Tobacco Use Types Packs/Day Years Used Date Smoking Tobacco: Never Smokeless Tobacco: Never Tobacco Cessation:Counseling Given: Not Answered Alcohol Use Standard Drinks/Week Comments Not Currently 0 (1 standard drink = 0.6 oz pure alcohol) no alcohol in about 1.5 years ago Comments No Sex and Gender Information Value Date Recorded Sex Assigned at Not on file Legal Sex Female 12:10 PM CDT Gender Identity Not on file Sexual Orientation Not on file Last Filed Vital Signs Vital Sign Reading Time Taken Comments Blood Pressure 99/70 01/03/2023 2:20 PM CDT Pulse 82 01/03/2023 2:20 PM CDT Temperature 36.1 C (97 F) 01/03/2023 2:20 PM CDT Respiratory Rate 16 01/03/2023 2:20 PM CDT Oxygen Saturation 94% 01/03/2023 2:20 PM CDT Inhaled Oxygen Concentration - - Weight 83.8 kg (184 lb 11.9 oz) 023 11:30 AM CDT Height 165.1 cm (5' 5 ) 01/03/2023 11:3 0 AM CDT Body Mass Index 30.74 01/03/2023 11:30 AM CDT Plan of Treatment Health Maintenance Due Date Last Done Comments Annual Physical 1985 Hepatitis C 2000 DTaP, Tdap and Td Vaccines ( 1 - Tdap) 2001 Hepatitis B Vaccines (1 of 3 - 19+ 3-dose series) 2001 Cervical Cancer Screening Pa p with HPV Testing (Age 30 to 64) Every 5 Years 2012 COVID-19 Vaccine (2 - 2023-2 5 season) 2023 07/16/2020 Influenza Adult (#1) 2024 Cervical Cancer Screening Pa p Smear (Age 30 to 64) Every 3 Years 06/01/2025 06/01/2022 Cervical Cancer Screening with HPV 06/01/2025 Mammogram Screening 10/07/2025 10/08/2023 HPV Vaccines Aged Out No longer eligi ble based on patient's age to complete this topic Meningococcal B Vaccine Aged Out No l onger eligible based on patient's age to complete this topic Meningococcal Vaccine Aged Out No pablo prabha eligible based on patient's age to complete this topic Pneumococcal Vaccine: Pediat rics (0 to 5 Years) and At-Risk Patients (6 to 64 Years) Aged Out No longer eligi ble based on patient's age to complete this topic RSV Immunizations Under 20 Months Aged Out No longer eligible based on patient's age to complete this topic Insurance [facility] MEDICARE Care Teams Hand Flatwork Finisher Relationship Specialty Start Date End Date Misael Grant MD [address] [place] [id number] PCP - General FAMILY PRACTICE 12/26/22 Misael Grant MD [address] [place] [id number] 12/26/22 Blossom Hook MD [address] [place] [address] HEMATOLOGY/ONCOLOGY 12/26/22
--- OUTSIDE RECORDS SUMMARY | 2024-06-12 00:40 | XMS_ITS | Encounter Summary ---
Author Organization [facility] Address [address] [place] [address] Care Team Providers Care Quality Engineering Manager Name Role Phone Misael Grant MD Primary Care Provider [phone] Misael Grant MD Unavailable [phone] Blossom Hook MD Unavailable [phone] Encounter Details Date Type Department Care Team (Late st Contact Info) Description 01/01/[address] [facility] [place] [id number] Allan Potts MD [address] [facility]. [place], [place] [id number] Social History Tobacco Use Types Packs/Day Years Used Date Smoking Tobacco: Never Smokeless Tobacco: Never Alcohol Use Standard Drinks/Week Comments Not Currently 0 (1 standard drink = 0.6 oz pure alcohol) no alcohol in about 1.5 years ago Comments No Sex and Gender Information Value Date Recorded Sex Assigned at Not on file Legal Sex Female 12:10 PM CDT Gender Identity Not on file Sexual Orientation Not on file documented as of this encounter H&P Notes * Allan Potts MD - 01/01/2023 4:29 PM CDT Attending Provider: No att. providers found PCP: MD Irina JEFFERSON is an 42-year-old female. Reason for Admission: * No active hospital problems. * HPI: Neurogenic bladder managed with Botox 200 units every 6 months Past Medical History: Diagnosis Date Low blood pressure Stroke ([facility]/HCC) ([facility]/HCC) 10/21/2016 Developed transverse myelitis. Possibly had spinal cord stroke Urinary incontinence in female neurogenic bladder Allergies: Allergies Allergen Reactions Adhesive [Tape] Rash Adhesives pulls off thin top layer of skin. Tolerates paper tape Social History Tobacco Use Smoking status: Never Smokeless tobacco: Never Substance Use Topics Alcohol use: Not Currently Comment: no alcohol in about 1.5 years ago Past Surgical History: Procedure Laterality Date INJECTION BOTOX botox injection x 2 for urinary incotinence OTHER PROCEDURE 12/2021 tendon tramsfer left arm, OTHER PROCEDURE Bilateral nerve transfers arms- right in 2018, left in 2019 THUMB FUSION 10/2022 Family History Adopted: Yes Travel Exposure: Current Outpatient Medications on File Prior to Visit Medication Sig amoxicillin (AMOXIL) 500 MG capsule Take 1 capsule (500 mg total) by mouth daily. Takes daily for acne apixaban (ELIQUIS) 2.5 MG tablet Take 1 tablet (2.5 mg total) by mouth 2 (two) times daily. baclofen (LIORESAL) 10 MG tablet Take 1 tablet (10 mg total) by mouth 3 (three) times daily. 20 mg in the morning, 15 mg in the late morning, 20 mg in the afternoon, 15 mg at bedtime busPIRone (BUSPAR) 10 MG tablet Take 1 tablet (10 mg total) by mouth 2 (two) times daily. Bdkpvoc-Rytsjoxte-Lewepcb D (CALCIUM 1200+D3 OR) Take 1 capsule by mouth daily. cetirizine (ZYRTEC) 10 MG tablet Take 1 tablet (10 mg total) by mouth daily. diphenhydrAMINE (BENADRYL) 25 MG capsule Take 1 capsule (25 mg total) by mouth nightly as needed for Itching. docusate sodium (COLACE) 100 MG capsule Take 1 capsule (100 mg total) by mouth 2 (two) times daily. furosemide (LASIX) 20 MG tablet Take 1 tablet (20 mg total) by mouth daily. LORazepam (ATIVAN) 0.5 MG tablet Take 1 tablet (0.5 mg total) by mouth nightly. NAPROXEN OR Take 500 mg by mouth as needed. NON FORMULARY Take 1 tablet by mouth daily. COLLAGEN NON FORMULARY Take 1 tablet by mouth nightly as needed. MELATONIN nortriptyline (PAMELOR) 75 MG capsule Take 1 capsule (75 mg total) by mouth nightly at bedtime. omeprazole EC (PRILOSEC OTC) 20 MG tablet Take 1 tablet (20 mg total) by mouth daily. oxybutynin XL (DITROPAN-XL) 10 MG 24 hr tablet Take 1 tablet (10 mg total) by mouth daily. pregabalin (LYRICA) 100 MG capsule Take 1 capsule (100 mg total) by mouth 3 (three) times daily. probiotic (FLORAJEN3) Cap capsule Take 1 capsule by mouth daily with breakfast. No current facility-administered medications on file prior to visit. Last menstrual period 12/24/2022. ROS negative Physical Exam No acute distress Wheelchair-bound Assessment: Neurogenic bladder Plan: Cystoscopy with Botox 200 units every 6. ALLAN POTTS MD 01/01/2023 documented in this encounter Plan of Treatment Not on file documented as of this encounter Visit Diagnoses Not on filedocumented in this encounter Care Teams Quality Engineering Manager Relationship Specialty Start Date End Date Misael Grant MD [address] [place] [id number] PCP - General FAMILY PRACTICE 12/26/22 Misael Grant MD [address] [place] [address] [address] S[address] [place] [id number] 12/26/22 Blossom Hook MD [address] [place] [address] HEMATOLOGY/ONCOLOGY 12/26/22 documented as of this encounter
--- OUTSIDE RECORDS SUMMARY | 2024-06-12 00:40 | XMS_ITS | Referral Summary ---
Author Organization [facility] Address [address] [place] [address] Care Team Providers Care Head Buyer Tobacco Name Role Phone Ian Grant MD Primary Care Provider [phone] Kavya Cooper MD Unavailable [phone] Juliet Moseley MD Unavailable Gisela Aldridge MD Unavailable Blossom Hook MD Unavailable [phone] Peg You Unavailable Unavailable Encounters Date Type Department Care Team Description 06/09/2024 2:30 PM POLYMERIZATION ENGINEER Office Visit [facility] Orthopaedic Surgery [address] [place] [address] Medicine 12th [place] [address] [place] [phone] Juliet Moseley MD Tetraplegia (HCC) (Primary Dx); Muscle spasticity; spasticity; Impaired mobility and ADLs 05/25/2024 1:43 PM POLYMERIZATION ENGINEER - 05/25/2024 11:59 PM POLYMERIZATION ENGINEER Hospital Encounter [facility] [address] [place] [phone] Age-related osteoporosis without current pathological fracture (Primary Dx) Discharge Disposition: Discharge to home or self care 05/22/2024 1:10 PM POLYMERIZATION ENGINEER Lab [facility] Lab [address] [place] [address] Age-related osteoporosis without current pathological fracture 05/22/2024 Orders Only [facility] [address] [place] [address] Kevin Wagner MD 05/18/2024 2:45 PM POLYMERIZATION ENGINEER Office Visit [facility] Orthopaedic Surgery [address] [place] [address] 12th [place] [address] Juliet Moseley MD Muscle spasticity (Primary Dx); Tetraplegia (HCC); spasticity; Neuropathic pain; Neurogenic bladder; Neurogenic bowel; Impaired mobility and ADLs 05/08/2024 Orders Only [facility] [address] [place] [address] Tracey Huang RN 04/17/2024 Orders Only [facility] [address] [place] [address] Mara Chu RN 04/09/2024 Orders Only [facility] Orthopaedic Surgery [address] [place] [address] [place] [address] [place] [address] Juliet Moseley MD Muscle spasticity (Primary Dx) 03/27/2024 Telephone [facility] Orthopaedic Surgery [address] [place] [address] [place] [address] [place] [address] Juliet oMseley MD 03/26/2024 2:05 PM POLYMERIZATION ENGINEER Lab [facility] [address] [place] [phone] Age-related osteoporosis without current pathological fracture 03/20/2024 Telephone [facility] Orthopaedic Surgery [address] [place] [address] [place] [address] [place] [address] Juliet Moseley MD 03/16/2024 Telephone [facility] Orthopaedic Surgery [address] [place] [address] 12th [place] [address] [place] [address] Juliet Moseley MD from Last 3 Months Allergies Active Allergy Reactions Criticality Noted Date [...] tablet/capsul e (500 mg total) by mouth seed cutter before breakfast 12/08/19 23 Active senna-docusate (PERICOLACE) [...] (06/08/2019): Added automatically from request for surgery [id number] Hx of abnormal cervical Pap smear 06/08/2019 Overview (06/09/2019): Added automatically from request for surgery [id number] On continuous oral anticoagulation 04/16/2019 Iron deficiency anemia 12/10/2018 Chronic deep vein thrombosis (DVT) of proximal vein of both lower extremities 12/10/2018 Venous thromboembolism 12/10/2018 History of spinal cord injury 08/14/2018 Overview (08/14/2018): Added automatically from request for surgery [id number] H/O spinal cord injury 01/14/2018 Overview (01/14/2018): Added automatically from request for surgery [id number] Nerve compression syndrome 10/08/2017 Overview (10/08/2017): Added automatically from request for surgery [id number] Carpal tunnel syndrome of right wrist 10/08/2017 Overview (10/08/2017): Added automatically from request for surgery [id number] Spinal cord injury, cervical region, initial enc [...] pain syndrome (non-herpetic) 02/01/2017 11/11/2017 Embolism (CMS/HCC) Immunizations Immunization Administration Dates Next Due [employer] SARS-CoV-2 Vaccination 07/16/2020 Social History Tobacco Use Types Packs/Day Years [...] Friends and Family Patient declined 08/07/2018 Attends [employer] Patient declined 05/2018 Active Member of [...] Paying Living Expenses Patient dec lined 08/07/2018 [facility] - Occupational Stress [...] file Not on file Not on file Last Filed Vital Signs Vital Sign Reading Time Taken Comments Blood Pressure 89/72 05/25/2024 2:03 PM POLYMERIZATION ENGINEER Pulse 90 05/25/2024 2:03 PM POLYMERIZATION ENGINEER Temperature 36.5 C (97.7 F) 05/25/2024 2:03 PM POLYMERIZATION ENGINEER Respiratory Rate 16 05/25/2024 2:03 PM POLYMERIZATION ENGINEER Oxygen Saturation 97% 05/25/2024 2:03 PM POLYMERIZATION ENGINEER Inhaled Oxygen Concentration - - Weight 84.8 kg (187 lb) 06/09/2024 2:30 PM POLYMERIZATION ENGINEER Height 165.1 cm (5' 5 ) 01/21/2024 2:46 PM CDT Body Mass Index 31.12 01/21/2024 2:46 PM CDT Plan of Treatment Not on file Medical Devices Implanted Type Area Senior Animator Device Identifier Shelf Expiration Date Model / Serial / Lot Daily Aisle [id number] Device Closure Angio-Seal Vip Bondek-Plus Polyglyd L70 Cm Od6 Fr Odsec.035 In Vascular - [id number] Implanted:Qty : 1 on 01/27/2019 at [facility] Daily Aisle/[employer] [id number] / / Synthes 2mm 11mm Self Tap Self Retain Stardrive Cortex T6 Screw Bone 201.361.97 - [id number] Implanted:Qty : 1 on 11/02/2022 by Aminah Juarez MD at [facility] Left: Hand Synthes I 201.361.9 7 / / Synthes 2mm 11mm Self Tap Lock Self Retain Stardrive T6 Screw Bone 201.881 - [id number] Implanted:Qty : 2 on 11/02/2022 by Aminah Juarez MD at [facility] Left: Hand Synthes I 201.881 / / Synthes Lcp Pro-Sravan 45mm 6 Hole Low Profile Cut To Length Plate Bone 247.346 - [id number] Implanted:Qty : 1 on 11/02/2022 by Aminah Juarez MD at [facility] Left: Hand Synthes I 247.346 / / Synthes 2mm 10mm Self Tap Lock Self Retain Stardrive T6 Screw Bone 201.880 - [id number] Implanted:Qty : 1 on 11/02/2022 by Aminah Juarez MD at [facility] Left: Hand Synthes I 201.880 / / Synthes 2mm 10mm Self Tap Self Retain Stardrive Cortex T6 Screw Bone 201.360.97 - [id number] Implanted:Qty : 1 on 11/02/2022 by Aminah Juarez MD at [facility] Left: Hand Synthes I 201.360.9 7 / / [employer] Corkscrew Fiberwire 2.2mm 4mm 17.9mm 2 Needle Wire Foot Ankle 2-0 Ar-1318ft - [id number] Implanted:Qty : 1 on 08/09/2023 by Aminah Juarez MD at [facility] Left: Index Finger [employer] [id number] 04/07/2028 AR-1318FT / / [id number] Explanted Type Area Senior Animator Device Identifier Shelf Expiration Date Model / Serial / Lot Synthes 2mm 10mm Self Tap Self Retain Stardrive Cortex T6 Screw Bone 201.360.97 - [id number] Explanted:Qty: 1 on 11/02/2022 at [facility] Left: Hand Synthes I 201.360.9 7 / / Synthes 2mm 11mm Self Tap Self Retain Stardrive Cortex T6 Screw Bone 201.361.97 - [id number] Explanted:Qty: 1 on 11/02/2022 at [facility] Left: Hand Synthes I 201.361.9 7 / / Synthes 2mm 9mm Self Tap Self Retain Stardrive Cortex T6 Screw Bone 201.359.97 - [id number] Explanted:Qty: 1 on 11/02/2022 at [facility] Left: Hand Synthes I 201.359.9 7 / / Synthes 2mm 12mm Self Tap Self Retain Stardrive Cortex T6 Screw Bone 201.362.97 - [id number] Explanted:Qty: 1 on 11/02/2022 at [facility] Left: Hand Synthes I 201.362.9 7 / / Procedures Procedure Name Priority Date/Time Associated Diagnosis Comments EGFR Routine 05/22/2024 1:19 PM POLYMERIZATION ENGINEER Age-related osteoporosis without current pathological fracture BASIC METABOLIC PANEL Routine 05/22/2024 1:19 PM POLYMERIZATION ENGINEER Age-related osteoporosis without current pathological fracture BOTOX INJECTION Routine 05/18/2024 2:45 PM POLYMERIZATION ENGINEER Muscle spasticity EGFR Routine 03/26/2024 12:02 PM POLYMERIZATION ENGINEER Age-related osteoporosis without current pathological fracture BASIC METABOLIC PANEL Routine 03/26/2024 12:02 PM POLYMERIZATION ENGINEER Age-related osteoporosis without current pathological fracture SCREENING MAMMOGRAM BILATERAL W GUILHERME Schedule Routine, Read Routine (OP Routine) 10/08/2023 1:08 PM CDT Encounter for screening mammogram for malignant neoplasm of breast PAP AND HIGH RISK HPV, REFLEX TO GENOTYPING Routine 06/01/2022 11:48 AM POLYMERIZATION ENGINEER HEPATITIS PANEL, ACUTE Routine Gen Lab 12/04/2016 12:59 AM CDT from Last 3 Months or Most Recently Relevant to Health Maintenance Results * eGFR (05/22/2024 1:19 PM POLYMERIZATION ENGINEER) eGFR >90 >=60 mL/min/1. 73 m2 Comment: [...] of Race in Diagnosing Kidney Disease, JASN 202). The CKD-EPI equation should not be used for patients with unstable renal function and has not been validated in children and those over 70. Current interpretive data was last reviewed 2021. Blood 05/22/2024 1:19 PM POLYMERIZATION ENGINEER 05/22/2024 2:11 PM POLYMERIZATION ENGINEER us Kevin Wagner MD LAB BLOOD ORDERABLES Final Resu lt ROMMELLED [address] [facility] [place] [address] * (ABNORMAL) Basic metabolic panel (05/22/2024 1:19 PM POLYMERIZATION ENGINEER) Sodium 135 135 - 145 mmol/L Potassium, pl 4.0 3.3 - 4.9 mmol/L [facility] Chloride 102 97 - 110 mmol/L [facility] CO2 20(L) 22 - 32 mmol/L [facility] Anion gap 13 2 - 15 mmol/L [facility] BUN 16 6 - 25 mg/dL [facility] Creatinine 0.54(L) 0.60 - 1.10 mg/dL [facility] Glucose 98 70 - 199 mg/dL [facility] Comment: Interpretive Data Fasting glucose >/= 126 [...] classification and Diagnosis of Diabetes Diabetes Care 2021; 46: S19-S40. Current interpretive data was last revised 2022. Calcium 9.2 8.5 - 10.3 mg/dL [facility] Blood 05/22/2024 1:19 PM POLYMERIZATION ENGINEER 05/22/2024 2:11 PM POLYMERIZATION ENGINEER us Kevin Wagner MD LAB BLOOD ORDERABLES Final Resu lt WILFRED [address] [facility] [place] [address] * Botox Injection (05/18/2024 2:45 PM POLYMERIZATION ENGINEER) Narrative Juliet Moseley MD - 05/18/2024 2:45 PM POLYMERIZATION ENGINEER Juliet Moseley MD 05/18/2024 2:55 PM Botox Injection Performed by: Juliet Moseley MD Authorized by: Juliet Moseley MD [place] Protocol: Consent Given by: Patient Procedure Details - Botox Injection: Procedure Details: Buy and Bill 100 Units onabotulinumtoxin A (botulinum toxin type A, BOTOX) 100 unit injection us Juliet Moseley MD IN CLINIC/BEDSIDE ORDERABLES Final Result * eGFR (03/26/2024 12:02 PM POLYMERIZATION ENGINEER) Pathologist [facility] eGFR >90 >=60 mL/min/1. 73 m2 Comment: [...] reviewed 2021. Blood 03/26/2024 12:0 2 PM POLYMERIZATION ENGINEER 03/26/2024 12:16 PM POLYMERIZATION ENGINEER us Kevin Wagner MD LAB BLOOD ORDERABLES Final Resu lt [facility] Department [place] [address] * (ABNORMAL) Basic metabolic panel (03/26/2024 12:02 PM POLYMERIZATION ENGINEER) Pathologist [facility] Sodium 134(L) 135 - 145 mmol/L Potassium, pl 4.4 3.3 - 4.9 mmol/L [facility] Chloride 100 97 - 110 mmol/L [facility] CO2 22 22 - 32 mmol/L [facility] Anion gap 12 2 - 15 mmol/L [facility] BUN 13 6 - 25 mg/dL [facility] Creatinine 0.54(L) 0.60 - 1.10 mg/dL [facility] Glucose 82 70 - 199 mg/dL [facility] Comment: Interpretive Data Fasting glucose >/= 126 [...] classification and Diagnosis of Diabetes Diabetes Care 2021; 46: S19-S40. Current interpretive data was last revised 2022. Calcium 9.2 8.5 - 10.3 mg/dL [facility] Blood 03/26/2024 12:0 2 PM POLYMERIZATION ENGINEER 03/26/2024 12:13 PM POLYMERIZATION ENGINEER us Kevin Wagner MD LAB BLOOD ORDERABLES Final Resu lt [facility] Department [place] [address] * Screening Mammogram Bilateral W Guilherme (10/08/2023 [...] age 40, based on guidelines of the [employer] (ACR Practice Parameter for the Performance of Screening and Diagnostic Mammography) and [employer]. For women [...] suspicious finding is seen in either breast. us Ian Grant MD IMG MAMMO PROCEDURES Dianna l Result * Pap and High Risk HPV, reflex to Genotyping (06/01/2022 11:48 AM POLYMERIZATION ENGINEER) Pap test 06/01/2022 11:4 8 AM POLYMERIZATION ENGINEER 06/01/2022 12:38 PM POLYMERIZATION ENGINEER Narrative 06/06/2022 11:34 AM POLYMERIZATION ENGINEER EPIC results best viewed via link to PDF [facility] [place], [place] [id number] Note to Patients: This report may contain [...] Gender: F : 1980 (Age: 42) Address: [address] [place] [address] Hospital #: [id number] Service: UNKNOWN Location: Patient Type: [facility] SPECIMEN Taken: 06/01/2022 Received: 06/01/2022 Accessioned: [...] 68. This HPV test was performed at [facility] in [place], [place] utilizing the Gen-Probe Aptima assay. wy/06/06/2022 11:34 NYLA Feliciano(ASCP) Report Electronically Reviewed and [...] clinical information and biopsy results as indicated. [facility] Clinical Laboratory Improvement Amendments (CLIA) mandate that cytologic and histologic results be correlated for laboratory it quality analyst & improvement standards. FOR ALL HIGH-GRADE CASES [...] NILM/neg. The HPV test was performed by [facility], [address] [place], [place] [id number]. Report Images and scanned documents, if included only viewable in PDF version The performance characteristics of some immunohistochemical stains, in-situ hybridization and fluorescence in-situ hybridization tests and immunophenotyping by flow cytometry cited in this report (if any) were determined by the Surgical Pathology Department at [facility] as part of an ongoing quality inspector program and in compliance with federally mandated [...] determined by the Surgical Pathology Department of [facility]. It has not been cleared or approved by the U. S. Food and Drug Administration. Loyda Gallagher MD LAB CYTOLOGY ORDERABLES Final Result * Hepatitis panel, acute (12/04/2016 12:59 AM CDT) Hep A IgM Nonreactive Nonreactive [facility] Comment: Interpretive Data If test is reported as GRAYZONE, new sample should be drawn in two weeks for testing. Current interpretive data was last revised on 2016. Hep B core IgM Nonreactive Nonreactive [facility] Comment: Interpretive Data If test is reported as GRAYZONE, new sample should be drawn for testing. Current interpretive data was last revised on 2016. Hep C Ab Nonreactive Nonreactive [facility] Comment: Interpretive Data Positive and greyzone results should be confirmed by a molecular method. If positive or greyzone, a second separately collected sample should be submitted for Hepatitis C Virus RNA. Detection and Quantitation by Real-Time Reverse Hairspring Truing Inspector-PCR.Current Interpretive data was last revised on 2016. HepBsAg Nonreactive Nonreactive [facility] Blood specimen (specimen) 12/04/2016 12:59 AM CDT 12/04/2016 1:57 AM CDT Tracey Rizvi MD LAB MICROBI OLOGY - GENERAL ORDERABLES Edited Result - Final [facility] Department [place] [address] from Last 3 Months or Most Recently Relevant to Health Maintenance Insurance MEDICARE [email or web address] [facility] MEDICARE MEDICARE Advance Directives For more information, please contact: [phone] Documents on File Type Date Recorded Patient Natural History Collections Curator Expl anation ADVANCE DIRECTIVE 03/06/2017 12:00 AM POW ER OF MOUTHPIECE MAKER FINANCIAL/MEDICAL * Full Code (Latest Code Status [...] 5:10 PM 01/27/2019 5:10 PM Care Teams Head Buyer Tobacco Relationship Specialty Start Date End Date Ian Grant MD [address] [place] [address] [address] PCP - General Family Medicine 09/17/17 Kavya Cooper MD [address] [place] [address] Referring Physician Neurology 10/02/17 Juliet Moseley MD [address] [place] [address] Referring Physician Physical Medicine and Rehabilitation 10/02/17 Gisela Aldridge MD [address] [place] [address] Referring Physician Neurology 10/02/17 Blossom Hook MD [address] [place], [place] [id number] Medical Oncologist/Hematologi st Hematology and Oncology 10/02/17 Peg You 11/15/17
--- NOTE | 2024-06-12 04:20 | WPDHPUPDATE1 ---
History and Physical Update Update Date/Time: 06/12/24 04:20 History and Physical has been reviewed, including an updated exam of the patient. There are NO changes in the patient's condition. Risks, benefits, and alternatives have been discussed and questions answered. Patient agrees to proceed with procedure.
[2024-06-12] MEDS: LACTATED RINGERS 1,000 ML 30 ML IV CONT (07:45)
[2024-06-12 08:00] VITALS: BP 85/43; PULSE 94; RESP 18; TEMP 36.3; O2SAT 97; BMI 31.4
[2024-06-12 09:34] LABS: BEDSIDEPREGUCG Negative (Negative)
--- NOTE | 2024-06-12 09:43 | WPDHPUPDATE1 ---
History and Physical Update Update Date/Time: 06/12/24 09:43 History and Physical has been reviewed, including an updated exam of the patient. There are NO changes in the patient's condition. Risks, benefits, and alternatives have been discussed and questions answered. Patient agrees to proceed with procedure. plan for cystoscopy botox 200U
[2024-06-12] MEDS: ceFAZolin 2 GM/D5W 50 ML 2 GM/50 ML BAG IVPB (09:45)
[2024-06-12] MEDS: BOTULINUM TOXIN TYPE A (*SPLP) 100 UNITS VIAL 200 UNITS XX (09:45)
[2024-06-12] MEDS: LIDOCAINE 2% GEL UROJET 10 ML PKG MUCOUS MEM (09:45)
[2024-06-12 10:09] VITALS: BP 103/77
--- NOTE | 2024-06-12 10:13 | W.PM.PROC2 ---
Procedure Note - Detailed Date of Procedure 06/12/24 Pre-op Diagnosis reflex neuropathic bladder Post-op Diagnosis Same Procedure Performed cystoscopy with injection of botulinum toxin a 200 units Surgeon Junito Montes MD Anesthesia MAC Indications this is a patient with urinary incontinence. They are here today for a Botox injection Description of Procedure there correctly identified. Informed consent obtained. There brought to the operating room. There given mac anesthesia. There prepped and draped in sterile fashion. There given appropriate perioperative antibiotics. Time-out performed. Uro jet was applied. Examination of the bladder revealed moderate trabeculations without other bladder after. I mixed 200 units of Botox with 20 mL of saline. It was injected throughout the bladder in the sub urothelial the muscular layer. Additional cc was used to clear the needle. the bladder was drained. There is minimal bleeding under low insufflation pressures. There awakened and transferred to PACU in stable condition. Implants None Estimated Blood Loss 1 Drains No Packing No Pathology None sent Complications No immediate complications Condition Stable Disposition PACU
[2024-06-12 10:30] VITALS: BP 91/50; PULSE 81
[2024-06-12 11:00] VITALS: BP 96/68; PULSE 80
== END 2024-06-12 11:20 | disposition home or self-care (01) ==
PROVIDERS: PCP Family Medicine; Visit Provider Urology
PROC: 3E0K8GC Introduction of Other Therapeutic Substance into Genitourinary Tract, Via Natural or Artificial Opening Endoscopic (ICD-10-PCS; CPT 52287; principal; 2024-06-12 09:30)
DX: N31.9 Neuromuscular dysfunction of bladder, unspecified (principal); N39.498 Other specified urinary incontinence
CPT/HCPCS: 52287; J0585; J0690; J2250; J3010; J7120

== ENCOUNTER 2024-12-11 00:35 | Day surgery (SDC) | payer MEDICARE, SELFPAY ==
--- NOTE | 2024-12-03 12:26 | PC.NURSE ---
Report to the Outpatient Waiting Room, entrance under the green pavilion located off [facility], at time _0645_ on date _[id number]_. Planned Procedure Time: _0845_.? Time changes happen often and if your time is changed the preop area will call you the afternoon before. - You and your visitor will be asked to self-screen and do not enter if you have any COVID symptoms. Please call surgeon if you need to reschedule. - A mask is optional within the hospital at this time. Patients may have clear liquids (water, carbonated beverages, clear teas, apple juice) until 3 hours prior to surgery with a maximum of 20 ounces. - No food from midnight until time of surgery and no smoking, or chewing tobacco (or any form of nicotine). No chewing gum, candy or mints. Take only the following medications with a SIP of water on the morning of surgery: ___Diazepam, Duloxetine, Baclofen, Buspirone, Norethindrone, Lyrica, and Amoxicillin____ DO NOT STOP ANY OF YOUR OTHER PRESCRIPTION MEDICATIONS PRIOR TO SURGERY EXCEPT THE FOLLOWING Hold all vitamins and supplements for 3 days per anesthesiologist. Medications to discontinue per physician ___Says has been approved to hold Eliquis 2 days prior to surgery. Date to take last dose Please no make-up, nail cape verdean, hairspray, perfume, deodorant, or body powder the day of surgery.? No jewelry (including any body piercings) or valuables the day of surgery, leave them at home.? Please take a shower or bath the night before, or the morning of, surgery with an antibacterial soap.? Wear comfortable, loose fitting clothing.? - Jewelry must be removed prior to entering the operating room.? Rings and piercings that are not removed may be cut off. - The hospital will not accept responsibility for valuables.? - Please leave all valuables, including medications, at home the day of surgery. If you are going home after surgery, a licensed [place] driver must drive you home.? - NO public transportation without another adult if you receive anesthesia. - We recommend that an adult stay with you for 24 hours following discharge. - We also recommend that you do not drive, make important decision, drink alcoholic beverages, or take any drugs that were not prescribed by your health care provider for at least 24 hours after your discharge time. Follow any additional instructions given to you from your surgeon. Telephone instructions given to ___Irina__and asked if any additional questions and then verbalized understanding. Patient advised to call surgeon office or pre surgery nurse liaison [phone] if any additional questions.
--- NOTE | 2024-12-05 13:23 | P.HP_ITS ---
H&P: HPI History of Present Illness Date/Time: 12/05/24 13:23 Chief Complaint: NBG Narrative: NGB Review of Systems Review of Systems: All systems reviewed & are unremarkable except as noted in HPI and below PMFSH Past Medical History Medical History Anxiety Quadriplegia Social History Social History Smoking status: Never smoker Alcohol intake: former Substance use: current Substance use type: marijuana Other substance usage details: Daily for sleep Living arrangements: with family Additional living arrangements comments: BOYFRIEND Spiritual care concerns: No Meds Home Medications and Allergies Home Medications ?Medication ?Instructions ?Recorded ?Confirmed ?Type Lactobacillus acidophilus and 1 cap PO DAILY 11/28/21 12/03/24 History rhamnosus 15 billion cell capsule (Probiotic) apixaban 2.5 mg tablet (Eliquis) 2.5 mg PO BID 2 12/03/24 History apple cider vinegar 300 mg tablet 300 mg PO DAILY 11/0712/03/24 History baclofen 10 mg tablet See Rx Instructions .Route . COMPLEX 11/28/21 12/03/24 History bisacodyl 5 mg tablet,delayed 5 mg PO HS 11/28/2111/07 History release (Dulcolax (bisacodyl)) buspirone 7.5 mg tablet 7.5 mg PO BID 11/28/2112/03 History calcium 500 mg (as 1 tablet PO BID 11/28/21 History carbonate)-vitamin D3 5 mcg (200 unit) tablet cetirizine 10 mg tablet (Zyrtec) 10 mg PO DAILY 12/03/24 History diazepam 2 mg tablet 2 mg PO BID 11/28/21 5 History diphenhydramine HCl 25 mg capsule 25 mg PO HS 11/28/21 12/03/24 History (Benadryl) duloxetine 60 mg capsule,delayed 60 mg PO BID 11/28/21 12/03/24 History release furosemide 20 mg tablet 20 mg PO DAILY 11/28/2111/07 History melatonin 10 mg tablet 10 mg PO HS 11/28/21 5 History naproxen 500 mg tablet 500 mg PO BID PRN Pain 11/2812/03/24 History norethindrone (contraceptive) 0.35 0.35 mg PO DAILY 12/03/24 History mg tablet ondansetron 4 mg disintegrating 4 mg PO Q8H PRN Nausea 11/28/21 12/03/24 History tablet pregabalin 100 mg capsule (Lyrica) 100 mg PO TID 11/2812/03/24 History spironolactone 50 mg tablet 50 mg PO BID 11/28/2111/07 History amoxicillin 500 mg capsule 500 mg PO BID 06/10/2311/07 History ascorbic acid 30 mg-collagen, 1 tablet PO DAILY 12/03/24 History hydrolyzed 833.3 mg tablet (Collagen Skin Renewal) oxybutynin chloride 5 mg tablet 5 mg PO HS 06/10/23 History nortriptyline 50 mg capsule 50 mg PO HS 12/03/2412/03 History Allergies Allergy/AdvReac Type Severity Reaction Status Date / Time adhesive tape AdvReac Mild Blister Verified 12/03/24 12:11 Exam Narrative: WC Assessment and Plan Assessment and plan (1) Uninhibited neurogenic bladder: Code(s): N31.9 - Neuromuscular dysfunction of bladder, unspecified Status: Acute Assessment and Plan: cysto botox 200U
--- NOTE | 2024-12-05 13:23 | PM.IMHP ---
H&P: HPI History of Present Illness Date/Time: 12/05/24 13:23 Chief Complaint: NBG Narrative: NGB Review of Systems Review of Systems: All systems reviewed & are unremarkable except as noted in HPI and below PMFSH Past Medical History Medical History Anxiety Quadriplegia Social History Social History Smoking status: Never smoker Alcohol intake: former Substance use: current Substance use type: marijuana Other substance usage details: Daily for sleep Living arrangements: with family Additional living arrangements comments: BOYFRIEND Spiritual care concerns: No Meds Home Medications and Allergies Home Medications ?Medication ?Instructions ?Recorded ?Confirmed ?Type Lactobacillus acidophilus and 1 cap PO DAILY 11/28/21 12/03/24 History rhamnosus 15 billion cell capsule (Probiotic) apixaban 2.5 mg tablet (Eliquis) 2.5 mg PO BID 11/28/21 12/03/24 History apple cider vinegar 300 mg tablet 300 mg PO DAILY 11/28/21 12/03/24 History baclofen 10 mg tablet See Rx Instructions .Route .COMPLEX 11/28/21 12/03/24 History bisacodyl 5 mg tablet,delayed 5 mg PO HS 11/28/21 12/03/24 History release (Dulcolax (bisacodyl)) buspirone 7.5 mg tablet 7.5 mg PO BID 11/28/21 12/03/24 History calcium 500 mg (as 1 tablet PO BID 11/28/21 12/03/24 History carbonate)-vitamin D3 5 mcg (200 unit) tablet cetirizine 10 mg tablet (Zyrtec) 10 mg PO DAILY 11/28/21 12/03/24 History diazepam 2 mg tablet 2 mg PO BID 11/28/21 12/03/24 History diphenhydramine HCl 25 mg capsule 25 mg PO HS 11/28/21 12/03/24 History (Benadryl) duloxetine 60 mg capsule,delayed 60 mg PO BID 11/28/21 12/03/24 History release furosemide 20 mg tablet 20 mg PO DAILY 11/28/21 12/03/24 History melatonin 10 mg tablet 10 mg PO HS 11/28/21 12/03/24 History naproxen 500 mg tablet 500 mg PO BID PRN Pain 11/28/21 12/03/24 History norethindrone (contraceptive) 0.35 0.35 mg PO DAILY 11/28/21 12/03/24 History mg tablet ondansetron 4 mg disintegrating 4 mg PO Q8H PRN Nausea 11/28/21 12/03/24 History tablet pregabalin 100 mg capsule (Lyrica) 100 mg PO TID 11/28/21 12/03/24 History spironolactone 50 mg tablet 50 mg PO BID 11/28/21 12/03/24 History amoxicillin 500 mg capsule 500 mg PO BID 06/10/23 12/03/24 History ascorbic acid 30 mg-collagen, 1 tablet PO DAILY 06/10/23 12/03/24 History hydrolyzed 833.3 mg tablet (Collagen Skin Renewal) oxybutynin chloride 5 mg tablet 5 mg PO HS 06/10/23 12/03/24 History nortriptyline 50 mg capsule 50 mg PO HS 12/03/24 12/03/24 History Allergies Allergy/AdvReac Type Severity Reaction Status Date / Time adhesive tape AdvReac Mild Blister Verified 12/03/24 12:11 Exam Narrative: WC Assessment and Plan Assessment and plan (1) Uninhibited neurogenic bladder: Code(s): N31.9 - Neuromuscular dysfunction of bladder, unspecified Status: Acute Assessment and Plan: cysto botox 200U
[2024-12-11 06:38] VITALS: BP 97/68; PULSE 72; RESP 18; TEMP 36.1; O2SAT 98
--- NOTE | 2024-12-11 07:15 | WPDHPUPDATE1 ---
History and Physical Update Update Date/Time: 12/11/24 07:15 History and Physical has been reviewed, including an updated exam of the patient. There are NO changes in the patient's condition. Risks, benefits, and alternatives have been discussed and questions answered. Patient agrees to proceed with procedure.
[2024-12-11] MEDS: LACTATED RINGERS 1,000 ML 30 ML IV CONT (07:35)
[2024-12-11 07:47] LABS: BEDSIDEPREGUCG Negative (Negative)
--- NOTE | 2024-12-11 08:00 | WPDANESEPPF ---
Anes - Initial Pre Proc Eval Procedure: Operation Date: 12/11/24 08:45 Proposed Procedures p Cystoscopy, Botox Injection - Junito Montes MD Date/Time: 12/11/24 08:00 Surgeon: Junito Montes MD Pre Op Diagnosis: neuropathic bladder Patient Data Age: 44 Gender: F Height: 1.65 m Weight: 82 kg Last Vital Signs Temp 36.1 C L 12/11/24 06:38 Pulse 72 12/11/24 06:38 Resp 18 12/11/24 06:38 BP 97/68 L 12/11/24 06:38 Pulse Ox 98 12/11/24 06:38 O2 Del Method Room Air 12/11/24 06:38 Allergies Allergy/AdvReac Type Severity Reaction Status Date / Time adhesive tape AdvReac Mild Blister Verified 12/11/24 06:50 Home Medications ?Medication ?Instructions ?Recorded ?Confirmed ?Type Lactobacillus acidophilus and 1 cap PO DAILY 11/28/21 12/11/24 History rhamnosus 15 billion cell capsule (Probiotic) apixaban 2.5 mg tablet (Eliquis) 2.5 mg PO BID 11/28/21 12/11/24 History apple cider vinegar 300 mg tablet 300 mg PO DAILY 11/28/21 12/11/24 History baclofen 10 mg tablet See Rx Instructions .Route .COMPLEX 11/28/21 12/11/24 History bisacodyl 5 mg tablet,delayed 5 mg PO HS 11/28/21 12/11/24 History release (Dulcolax (bisacodyl)) buspirone 7.5 mg tablet 7.5 mg PO BID 11/28/21 12/11/24 History calcium 500 mg (as 1 tablet PO BID 11/28/21 12/11/24 History carbonate)-vitamin D3 5 mcg (200 unit) tablet cetirizine 10 mg tablet (Zyrtec) 10 mg PO DAILY 11/28/21 12/11/24 History diazepam 2 mg tablet 2 mg PO BID 11/28/21 12/11/24 History diphenhydramine HCl 25 mg capsule 25 mg PO HS 11/28/21 12/11/24 History (Benadryl) duloxetine 60 mg capsule,delayed 60 mg PO BID 11/28/21 12/11/24 History release furosemide 20 mg tablet 20 mg PO DAILY 11/28/21 12/11/24 History melatonin 10 mg tablet 10 mg PO HS 11/28/21 12/11/24 History naproxen 500 mg tablet 500 mg PO BID PRN Pain 11/28/21 12/03/24 History norethindrone (contraceptive) 0.35 0.35 mg PO DAILY 11/28/21 12/11/24 History mg tablet ondansetron 4 mg disintegrating 4 mg PO Q8H PRN Nausea 11/28/21 12/03/24 History tablet pregabalin 100 mg capsule (Lyrica) 100 mg PO TID 11/28/21 12/11/24 History spironolactone 50 mg tablet 50 mg PO BID 11/28/21 12/11/24 History amoxicillin 500 mg capsule 500 mg PO BID 06/10/23 12/11/24 History ascorbic acid 30 mg-collagen, 1 tablet PO DAILY 06/10/23 12/11/24 History hydrolyzed 833.3 mg tablet (Collagen Skin Renewal) oxybutynin chloride 5 mg tablet 5 mg PO HS 06/10/23 12/11/24 History nortriptyline 50 mg capsule 50 mg PO HS 12/03/24 12/11/24 History Laboratory Tests 12/11/24 07:45 POC Urine HCG, Qual Negative (Negative) Patient hx anesthesia problems: none Family hx anesthesia problems: none Results Review: All pre-operative results and documents have been reviewed as part of the pre-operative evaluation. [facility] Past Medical History Medical History Anxiety Quadriplegia Social History Social History Smoking status: Never smoker Alcohol intake: former Substance use: current Substance use type: marijuana Other substance usage details: Daily for sleep Living arrangements: with family Additional living arrangements comments: BOYFRIEND Spiritual care concerns: No Anes - Eval Final PreProcedure Day of Procedure 12/11/24 08:00 Patient weight: obese Heart: regular rate and rhythm Lungs: clear to auscultation Airway: Mallampati scale class II Neurological: alert and oriented Last oral intake: >/= 8 hours ASA classification: III Emergent: no Anesthetic plan: proceed Anesthesia type and monitoring: general GIVS and standard monitoring Results Review: All pre-operative results and documents have been reviewed as part of the pre-operative evaluation. Informed Consent: The patient's anesthetic plan and its attendant risks and benefits were discussed with the patient/family/POA. Questions were solicited and answers provided to the satisfaction of the patient/family/POA.
[2024-12-11] MEDS: ceFAZolin 2 GM in SODIUM CHLORIDE 0.9% IV 50 ML 100 ML IVPB (08:33)
[2024-12-11] MEDS: BOTULINUM TOXIN TYPE A (*SPLP) 100 UNITS VIAL 200 UNITS XX (08:49)
--- NOTE | 2024-12-11 08:57 | P.OP_ITS ---
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 She receives Botox 200 units every 6 months. She is here today for repeat treatment Description of Procedure she was correctly identified. Informed consent obtained. From the operating room. She was given monitored anesthesia care. She was placed in dorsal lithotomy position. She was prepped draped sterile fashion. Time-out performed. Cystoscopy revealed moderate trabeculations. Bladder otherwise normal. I mixed 200 units of Botox in 20 cc preservative-free saline. I injected throughout the bladder the sub urothelial and muscular layer. The n eedle was cleared with additional cc. There was minimal bleeding the injection site. Her bladder was drained. She was awakened transferred to PACU in stable condition. Estimated Blood Loss 1 Drains No Packing No Pathology None sent Complications No immediate complications Condition Stable Disposition PACU
[2024-12-11 08:58] VITALS: BP 91/61; PULSE 92; O2SAT 95
[2024-12-11 09:28] VITALS: BP 99/53; PULSE 85; O2SAT 97
[2024-12-11 09:54] VITALS: BP 99/65; PULSE 93
== END 2024-12-11 10:10 | disposition home or self-care (01) ==
PROVIDERS: PCP Family Medicine; Visit Provider Urology
PROC: 3E0K8GC Introduction of Other Therapeutic Substance into Genitourinary Tract, Via Natural or Artificial Opening Endoscopic (ICD-10-PCS; CPT 52287; principal; 2024-12-11 08:45)
DX: N31.9 Neuromuscular dysfunction of bladder, unspecified (principal); G82.22 Paraplegia, incomplete; F12.90 Cannabis use, unspecified, uncomplicated; E66.9 Obesity, unspecified; Z68.30 Body mass index [BMI] 30.0-30.9, adult
CPT/HCPCS: 52287; J0690; J0585; J2003; J2250; J2704; J3010; J7120